=== PATIENT | female | born 1965 | race Two or more races ===

== ENCOUNTER 2023-12-23 09:21 | Inpatient (IN) | payer MEDICARE, OTHER ==
[~2023-12-23] VITALS: Ht 167.6 cm; Wt 101.4 kg
[2023-12-23] VITALS (10 sets, daily range): BP systolic 90–151; BP diastolic 47–81; PULSE 69–128; RESP 16–24; O2SAT 94–100
[2023-12-23] MEDS: MIDAZOLAM DRIP 50 mg/50mL 50 ML IV SCH (09:23)
[2023-12-23] MEDS ORDERED: MIDAZOLAM DRIP 50 mg/50mL 50 ML IV ONE (09:23)
[2023-12-23] MEDS ORDERED: NOREPINEPHRINE 8 MG/250ML KIT 250 ML IV ONE (09:24)
[2023-12-23] MEDS: NOREPINEPHRINE 8 MG/250ML KIT 250 ML IV SCH (09:24)
[2023-12-23] MEDS: DOPamine 1600MCG/ML D5W 250 ML IV ONE (09:25)
[2023-12-23 10:05] LABS: Basophils # (auto) 0.2 10 ^3/uL (0-0.2); Eosinophils # (auto) 0.3 10 ^3/uL (0-0.8); Hemoglobin 12.6 g/dL (12.2-16.2); Lymphocytes # (auto) 4.4 10 ^3/uL (0.4-5.4); Nucleated Red Blood Cells % 0.1 %; Red Cell Distribution Width 18.7 % (11.8-14.3)
[2023-12-23 10:07] LABS: Basophils % (auto) 0.9 % (0.0-2.0); Eosinophils % (auto) 1.3 % (0.0-7.0); Hematocrit 40.2 % (36.0-46.0); Lymphocytes % (auto) 19.2 % (10.0-50.0); Mean Corpuscular Hemoglobin 27.6 pg (28.0-32.0); Mean Corpuscular Hgb Conc. 31.3 g/dL (32.0-36.0); Mean Corpuscular Volume 88.4 fL (80.0-100.0); Monocytes # (auto) 1.4 10 ^3/uL (0-1.3); Monocytes % (auto) 6.1 % (0.0-12.0); Neutrophils # (auto) 16.4 10 ^3/uL (1.6-8.6); Neutrophils % (auto) 72.5 % (37.0-80.0); Red Blood Cells 4.54 10^6/uL (4.0-5.20); White Blood Cell 22.7 10^3/uL (4.4-10.8)
[2023-12-23 10:25] LABS: Alanine Aminotransferase 313 U/L (7-40); Alkaline Phosphatase 144 U/L (46-116); Anion Gap 14 (5-15); Aspartate Aminotransferase 769 U/L (13-40); BUN/Creatinine Ratio 9.5 (10.0-20.0); Bilirubin, Total 0.4 mg/dL (0.2-1.0); Blood Urea Nitrogen 8 mg/dL (9-23); Calcium 8.4 mg/dL (8.7-10.4); Carbon Dioxide 20 mmol/L (20-30); Chloride 106 mmol/L (98-107); Glucose 192 mg/dL (74-106); Magnesium 1.9 mg/dL (1.6-2.6); Potassium 3.3 mmol/L (3.5-5.1); Sodium 140 mmol/L (136-145); Total Protein 6.7 g/dL (5.7-8.2)
[2023-12-23 10:31] LABS: Lactic Acid w/Reflex 5.9 mmol/L (0.4-2.0)
[2023-12-23 10:32] LABS: Urine Bacteria FEW /hpf (None Seen); Urine Blood 1+ /uL (Negative); Urine Color Light-Yellow (Yellow); Urine Protein, UAD 2+ (Negative); Urine Specific Gravity 1.008 (1.001-1.035); Urine Urobilinogen Normal (Negative); Urine WBC 3 /hpf (0 - 5)
[2023-12-23 10:34] LABS: Amphetamine Screen, Urine Neg (NEGATIVE); Barbiturate Scree,Urine Neg (NEGATIVE); Benzodiazephine Screen, Urine Neg (NEGATIVE); Cannabinoid Screen, Urine Neg (NEGATIVE); Cocaine Screen, Urine Neg (NEGATIVE); Opiate Scree,Urine Neg (NEGATIVE); Phencyclidine Screen, Urine Neg (NEGATIVE); Urine Clarity CLOUDY (Clear)
[2023-12-23 10:35] LABS: INR 1.09 (0.9-1.15); Prothrombin Time 11.4 sec (9.3-11.8)
[2023-12-23] MEDS: SODIUM CHLORIDE 0.9% 1,000 ML IV ONE ×3 (10:41→14:52)
[2023-12-23] MEDS: cefTRIAXone 1GM/50ML D5W 50 ML IV ONE (11:16)
[2023-12-23] MEDS: PROPOFOL 100 ML IV SCH (11:25)
[2023-12-23] MEDS: AZITHROMYCIN 500MG/ 250ML 250 ML IV ONE (11:35)
[2023-12-23 11:50] LABS: Base Excess -8.3 mmol/L (-2.0-2.0)
[2023-12-23] MEDS ORDERED: NITROGLYCERIN 0.4 MG SL TAB SL PRN (14:45)
[2023-12-23] MEDS ORDERED: VANCOMYCIN PER PHARMACY 0 MG IV SCH (14:45)
[2023-12-23] MEDS ORDERED: ACETAMINOPHEN 325 MG TAB PO PRN (14:45)
[2023-12-23] MEDS ORDERED: MORPHINE SULFATE INJ 2 MG/ml SYRG IV PRN (14:45)
[2023-12-23 15:23] LABS: LDL Cholesterol 101 mg/dL (< 100); Triglycerides 214 mg/dL (< 150)
[2023-12-23 15:25] LABS: Cholesterol 167 mg/dL (< 200); HDL Cholesterol 54 mg/dL (40-59)
[2023-12-23] MEDS: PANTOPRAZOLE 40 MG/10 ML VIAL INJ IV ONE (16:18)
[2023-12-23] MEDS: SODIUM BICARB 8.4% 50Meq/50ml SYR Vial IV ONE (16:18)
[2023-12-23] MEDS: VANCOMYCIN 1GM/200ML 200 ML IV ONE (16:18)
[2023-12-23] MEDS: ENOXAPARIN SOD 120 MG/0.8 ML SYRINGE SC ONE (16:19)
[2023-12-23 16:30] LABS: Base Excess -5.3 mmol/L (-2.0-2.0)
[2023-12-23] MEDS: MAGNESIUM SULFATE 1GM/100ML 100 ML IV SCH (17:08)
[2023-12-23] MEDS ORDERED: METH-1286 PO (17:32)
[2023-12-23] MEDS ORDERED: LISI-275 PO (17:32)
[2023-12-23] MEDS ORDERED: FURO1TAB33 PO (17:32)
[2023-12-23] MEDS ORDERED: CARV-217 PO (17:32)
[2023-12-23] MEDS ORDERED: SPIR25TA8 PO (17:32)
[2023-12-23] MEDS ORDERED: MIRA25TA PO (17:32)
[2023-12-23] MEDS ORDERED: FAMO-12 PO (17:32)
[2023-12-23] MEDS: CEFEPIME 1GM/ 50ML 50 ML IV ONE (17:35)
[2023-12-23] MEDS: FOLIC ACID 1 MG, MAGNESIUM SULF SDV 50% 8 MEQ, MULTIPLE VITAMIN 10 ML, THIAMINE INJ 100... INJ SCH (18:08)
[2023-12-23] MEDS: POTASSIUM CHL 20MEQ/100ML 100 ML IV ONE (18:14)
[2023-12-23 18:45] LABS: Lactic Acid w/Reflex 4.2 mmol/L (0.4-2.0)
[2023-12-23] MEDS: IBUPROFEN 100MG/5ML ORAL SUSP 100 MG/5 ML UD GT PRN (20:42)
[2023-12-23] MEDS: CEFEPIME 1GM/ 50ML 50 ML IV SCH (23:00)
[2023-12-24] VITALS (13 sets, daily range): BP systolic 91–126; BP diastolic 54–74; PULSE 72–79; RESP 16–24; O2SAT 94–98
[2023-12-24 00:58] LABS: Lactic Acid w/Reflex 3.2 mmol/L (0.4-2.0)
[2023-12-24] MEDS: VANCOMYCIN 1GM/200ML 200 ML IV SCH (03:00)
[2023-12-24 07:03] LABS: Basophils # (auto) 0 10 ^3/uL (0-0.2); Basophils % (auto) 0.4 % (0.0-2.0); Eosinophils # (auto) 0 10 ^3/uL (0-0.8); Eosinophils % (auto) 0.3 % (0.0-7.0); Hematocrit 28.9 % (36.0-46.0); Hemoglobin 9.4 g/dL (12.2-16.2); Lymphocytes # (auto) 0.9 10 ^3/uL (0.4-5.4); Lymphocytes % (auto) 11.9 % (10.0-50.0); Mean Corpuscular Hemoglobin 28.6 pg (28.0-32.0); Mean Corpuscular Hgb Conc. 32.7 g/dL (32.0-36.0); Mean Corpuscular Volume 87.7 fL (80.0-100.0); Monocytes # (auto) 0.8 10 ^3/uL (0-1.3); Monocytes % (auto) 9.5 % (0.0-12.0); Neutrophils # (auto) 6.2 10 ^3/uL (1.6-8.6); Neutrophils % (auto) 77.9 % (37.0-80.0); Nucleated Red Blood Cells % 0.1 %; Red Cell Distribution Width 18.7 % (11.8-14.3); White Blood Cell 7.9 10^3/uL (4.4-10.8)
[2023-12-24 07:19] LABS: Alanine Aminotransferase 214 U/L (7-40); Albumin 3.1 g/dL (3.2-4.8); Alkaline Phosphatase 84 U/L (46-116); Anion Gap 9 (5-15); Aspartate Aminotransferase 484 U/L (13-40); BUN/Creatinine Ratio 15.9 (10.0-20.0); Bilirubin, Total 0.8 mg/dL (0.2-1.0); Blood Urea Nitrogen 11 mg/dL (9-23); Calcium 7.6 mg/dL (8.5-10.1); Carbon Dioxide 22 mmol/L (20-30); Chloride 110 mmol/L (98-107); Glucose 91 mg/dL (74-106); Potassium 3.9 mmol/L (3.5-5.1); Sodium 141 mmol/L (136-145); Total Protein 4.9 g/dL (5.7-8.2)
[2023-12-24 07:39] LABS: Base Excess -1.6 mmol/L (-2.0-2.0)
[2023-12-24] MEDS: PANTOPRAZOLE 40 MG/10 ML VIAL INJ IV SCH (08:55)
[2023-12-24] MEDS: ENOXAPARIN SOD 120 MG/0.8 ML SYRINGE SC SCH (08:55)
[2023-12-24] MEDS: fentaNYL Drip 2500mCg/250mlNS 250 ML IV SCH (14:08)
[2023-12-24 14:27] LABS: COVID19 ANTIGEN SOFIA FIA NEGATIVE (NEGATIVE); Rapid Influenza A Negative (Negative); Rapid Influenza B Negative (Negative)
[2023-12-24] MEDS: ACETAMINOPHEN 325 MG TAB PO PRN (14:30)
[2023-12-24] MEDS: Jevity 1.2 Cal/Fiber 1 Liter GT SCH (16:16)
[2023-12-24] MEDS: AMIODARONE 450mg/250ml AE 250 ML IV SCH ×2 (16:54→21:15)
[2023-12-24] MEDS: FOLIC ACID 1 MG, MAGNESIUM SULF SDV 50% 8 MEQ, MULTIPLE VITAMIN 10 ML, THIAMINE INJ 100... INJ SCH (17:00)
[2023-12-24] MEDS: AMIODARONE HCL 200 MG TAB PO ONE (17:28)
[2023-12-24] MEDS: IOHEXOL 350 MG/ML 100ML IJ ONE ×2 (21:27)
[2023-12-24] MEDS: AMIODARONE HCL 200 MG TAB PO SCH (22:03)
[2023-12-25] VITALS (110 sets, daily range): BP systolic 77–149; BP diastolic 20–80; PULSE 56–89; RESP 16–21; TEMP 97.5–99.7; O2SAT 91–100
[2023-12-25] MEDS: AMIODARONE 450mg/250ml AE 250 ML IV ONE (00:33)
[2023-12-25 04:02] LABS: Basophils # (auto) 0 10 ^3/uL (0-0.2); Basophils % (auto) 0.5 % (0.0-2.0); Eosinophils # (auto) 0.1 10 ^3/uL (0-0.8); Eosinophils % (auto) 0.9 % (0.0-7.0); Hematocrit 29.1 % (36.0-46.0); Hemoglobin 9.5 g/dL (12.2-16.2); Lymphocytes % (auto) 9.8 % (10.0-50.0); Mean Corpuscular Hgb Conc. 32.8 g/dL (32.0-36.0); Mean Corpuscular Volume 88.3 fL (80.0-100.0); Monocytes # (auto) 0.9 10 ^3/uL (0-1.3); Monocytes % (auto) 8.6 % (0.0-12.0); Neutrophils # (auto) 8.3 10 ^3/uL (1.6-8.6); Neutrophils % (auto) 80.2 % (37.0-80.0); Nucleated Red Blood Cells % 0.1 %; Red Blood Cells 3.29 10^6/uL (4.0-5.20); Red Cell Distribution Width 18.9 % (11.8-14.3); White Blood Cell 10.3 10^3/uL (4.4-10.8)
[2023-12-25 04:11] LABS: Alanine Aminotransferase 161 U/L (7-40); Albumin 3.4 g/dL (3.2-4.8); Alkaline Phosphatase 91 U/L (46-116); Anion Gap 4 (5-15); Aspartate Aminotransferase 173 U/L (13-40); BUN/Creatinine Ratio 14.3 (10.0-20.0); Bilirubin, Total 0.6 mg/dL (0.2-1.0); Blood Urea Nitrogen 10 mg/dL (9-23); Calcium 8.2 mg/dL (8.7-10.4); Carbon Dioxide 25 mmol/L (20-30); Chloride 109 mmol/L (98-107); Glucose 119 mg/dL (74-106); Magnesium 2.5 mg/dL (1.6-2.6); Potassium 4.2 mmol/L (3.5-5.1); Sodium 138 mmol/L (136-145); Total Protein 5.6 g/dL (5.7-8.2)
[2023-12-25 11:15] LABS: Folate (Folic Acid) 16.58 ng/mL (>5.38)
[2023-12-26] VITALS (107 sets, daily range): BP systolic 85–143; BP diastolic 35–82; PULSE 52–97; RESP 12–20; TEMP 97.3–101.1; O2SAT 91–100
[2023-12-26 04:00] LABS: Basophils # (auto) 0 10 ^3/uL (0-0.2); Basophils % (auto) 0.4 % (0.0-2.0); Eosinophils # (auto) 0.4 10 ^3/uL (0-0.8); Eosinophils % (auto) 4.3 % (0.0-7.0); Hematocrit 27.8 % (36.0-46.0); Hemoglobin 8.9 g/dL (12.2-16.2); Lymphocytes # (auto) 0.8 10 ^3/uL (0.4-5.4); Lymphocytes % (auto) 9.7 % (10.0-50.0); Mean Corpuscular Hemoglobin 28.3 pg (28.0-32.0); Mean Corpuscular Hgb Conc. 31.9 g/dL (32.0-36.0); Mean Corpuscular Volume 88.7 fL (80.0-100.0); Monocytes # (auto) 0.9 10 ^3/uL (0-1.3); Monocytes % (auto) 10.3 % (0.0-12.0); Neutrophils # (auto) 6.3 10 ^3/uL (1.6-8.6); Neutrophils % (auto) 75.3 % (37.0-80.0); Red Blood Cells 3.13 10^6/uL (4.0-5.20); Red Cell Distribution Width 18.4 % (11.8-14.3); White Blood Cell 8.4 10^3/uL (4.4-10.8)
[2023-12-26 04:43] LABS: Alanine Aminotransferase 119 U/L (7-40); Albumin 3.1 g/dL (3.2-4.8); Alkaline Phosphatase 124 U/L (46-116); Anion Gap 4 (5-15); Aspartate Aminotransferase 90 U/L (13-40); Blood Urea Nitrogen 6 mg/dL (9-23); Calcium 8.4 mg/dL (8.7-10.4); Carbon Dioxide 26 mmol/L (20-30); Chloride 109 mmol/L (98-107); Glucose 132 mg/dL (74-106); Magnesium 2.2 mg/dL (1.6-2.6); Potassium 3.9 mmol/L (3.5-5.1); Sodium 139 mmol/L (136-145)
[2023-12-26 04:44] LABS: Bilirubin, Total 1.2 mg/dL (0.2-1.0); Total Protein 5.3 g/dL (5.7-8.2)
[2023-12-26 07:18] LABS: Base Excess -2.6 mmol/L (-2.0-2.0)
[2023-12-26] MEDS ORDERED: METOCLOPRAMIDE 10 mg/10ml ORAL soln GT PRN (09:00)
[2023-12-26] MEDS: METOCLOPRAMIDE HCL 5MG/ml INJ 2ml VIAL IV ONE (09:22)
[2023-12-26] MEDS: ENOXAPARIN SOD 40 MG/0.4 ML SYRINGE SC SCH (09:24)
[2023-12-26] MEDS: cefTRIAXone 2GM/50ML D5W 50 ML IV SCH (10:02)
[2023-12-26 10:23] LABS: Urine Bacteria None Seen /hpf (None Seen)
[2023-12-26 10:57] LABS: Urine Blood 1+ /uL (Negative); Urine Budding Yeast OCCASIONAL /hpf (None Seen); Urine Clarity Clear (Clear); Urine Color Yellow (Yellow); Urine Protein, UAD 1+ (Negative); Urine Specific Gravity 1.027 (1.001-1.035); Urine Urobilinogen Normal (Negative); Urine WBC 8 /hpf (0 - 5)
[2023-12-26] MEDS: CATHFLO ACTIVASE (ALTEPLASE) 2 MG VIAL IV ONE (13:09)
[2023-12-27] VITALS (95 sets, daily range): BP systolic 100–171; BP diastolic 43–101; PULSE 61–119; RESP 14–35; TEMP 98.4–101.1; O2SAT 92–100
[2023-12-27 04:06] LABS: Basophils # (auto) 0 10 ^3/uL (0-0.2); Basophils % (auto) 0.3 % (0.0-2.0); Eosinophils # (auto) 0.3 10 ^3/uL (0-0.8); Eosinophils % (auto) 2.8 % (0.0-7.0); Hematocrit 28.4 % (36.0-46.0); Lymphocytes # (auto) 0.7 10 ^3/uL (0.4-5.4); Lymphocytes % (auto) 7.3 % (10.0-50.0); Mean Corpuscular Hgb Conc. 31.8 g/dL (32.0-36.0); Mean Corpuscular Volume 88.2 fL (80.0-100.0); Monocytes % (auto) 10.9 % (0.0-12.0); Neutrophils # (auto) 7.1 10 ^3/uL (1.6-8.6); Neutrophils % (auto) 78.7 % (37.0-80.0); Red Blood Cells 3.22 10^6/uL (4.0-5.20); Red Cell Distribution Width 19.3 % (11.8-14.3)
[2023-12-27 04:34] LABS: Anion Gap 4 (5-15); Carbon Dioxide 27 mmol/L (20-30); Chloride 108 mmol/L (98-107); Sodium 139 mmol/L (136-145)
[2023-12-27 04:35] LABS: Calcium 8.8 mg/dL (8.7-10.4)
[2023-12-27 04:40] LABS: Blood Urea Nitrogen 6 mg/dL (9-23); Glucose 96 mg/dL (74-106)
[2023-12-27] MEDS: MIDAZOLAM DRIP 50 mg/50mL 50 ML IV SCH (05:28)
[2023-12-27 08:00] LABS: Base Excess -0.6 mmol/L (-2.0-2.0)
[2023-12-27 08:19] LABS: Albumin 3.2 g/dL (3.2-4.8)
[2023-12-27 08:20] LABS: Bilirubin, Direct 0.5 mg/dL (<0.3); Bilirubin, Total 0.8 mg/dL (0.2-1.0); Total Protein 5.5 g/dL (5.7-8.2)
[2023-12-28] VITALS (104 sets, daily range): BP systolic 100–177; BP diastolic 53–114; PULSE 6–127; RESP 10–33; TEMP 98.6–99.4; O2SAT 92–100
[2023-12-28 04:08] LABS: Basophils # (auto) 0 10 ^3/uL (0-0.2); Basophils % (auto) 0.4 % (0.0-2.0); Eosinophils # (auto) 0.2 10 ^3/uL (0-0.8); Eosinophils % (auto) 2.4 % (0.0-7.0); Hemoglobin 9.1 g/dL (12.2-16.2); Lymphocytes # (auto) 0.7 10 ^3/uL (0.4-5.4); Mean Corpuscular Hemoglobin 29.5 pg (28.0-32.0); Mean Corpuscular Hgb Conc. 33.6 g/dL (32.0-36.0); Mean Corpuscular Volume 87.8 fL (80.0-100.0); Monocytes # (auto) 1.3 10 ^3/uL (0-1.3); Monocytes % (auto) 14.1 % (0.0-12.0); Neutrophils # (auto) 6.7 10 ^3/uL (1.6-8.6); Neutrophils % (auto) 75.1 % (37.0-80.0); Nucleated Red Blood Cells % 0.1 %; Red Blood Cells 3.08 10^6/uL (4.0-5.20); Red Cell Distribution Width 19.1 % (11.8-14.3); White Blood Cell 8.9 10^3/uL (4.4-10.8)
[2023-12-28 04:15] LABS: Alanine Aminotransferase 62 U/L (7-40); Albumin 3.2 g/dL (3.2-4.8); Alkaline Phosphatase 104 U/L (46-116); Anion Gap 4 (5-15); Aspartate Aminotransferase 37 U/L (13-40); BUN/Creatinine Ratio 11.6 (10.0-20.0); Bilirubin, Total 0.6 mg/dL (0.2-1.0); Blood Urea Nitrogen 5 mg/dL (9-23); Calcium 8.7 mg/dL (8.7-10.4); Carbon Dioxide 29 mmol/L (20-30); Chloride 106 mmol/L (98-107); Glucose 105 mg/dL (74-106); Magnesium 1.8 mg/dL (1.6-2.6); Potassium 3.9 mmol/L (3.5-5.1); Sodium 139 mmol/L (136-145); Total Protein 5.4 g/dL (5.7-8.2)
[2023-12-28 07:44] LABS: Base Excess 1.8 mmol/L (-2.0-2.0)
[2023-12-28] MEDS: hydrALAZINE HCL 20 MG/ML VL IV PRN (12:16)
[2023-12-28] MEDS: METOPROLOL TARTRATE 25 MG TAB PO SCH (21:34)
[2023-12-29] VITALS (84 sets, daily range): BP systolic 107–169; BP diastolic 54–99; PULSE 70–105; RESP 8–37; TEMP 98–99.4; O2SAT 90–100
[2023-12-29 04:42] LABS: Alanine Aminotransferase 46 U/L (7-40); Alkaline Phosphatase 87 U/L (46-116); Anion Gap 8 (5-15); BUN/Creatinine Ratio 14.3 (10.0-20.0); Blood Urea Nitrogen 6 mg/dL (9-23); Calcium 8.7 mg/dL (8.7-10.4); Carbon Dioxide 28 mmol/L (20-30); Chloride 105 mmol/L (98-107); Glucose 95 mg/dL (74-106); Potassium 3.3 mmol/L (3.5-5.1); Sodium 141 mmol/L (136-145)
[2023-12-29 04:43] LABS: Magnesium 1.8 mg/dL (1.6-2.6)
[2023-12-29 04:44] LABS: Albumin 3.2 g/dL (3.2-4.8); Aspartate Aminotransferase 29 U/L (13-40); Bilirubin, Total 0.6 mg/dL (0.2-1.0); Total Protein 5.3 g/dL (5.7-8.2)
[2023-12-29 04:56] LABS: Basophils # (auto) 0 10 ^3/uL (0-0.2); Basophils % (auto) 0.5 % (0.0-2.0); Eosinophils # (auto) 0.3 10 ^3/uL (0-0.8); Eosinophils % (auto) 3.9 % (0.0-7.0); Hematocrit 24.7 % (36.0-46.0); Hemoglobin 8.2 g/dL (12.2-16.2); Lymphocytes # (auto) 0.8 10 ^3/uL (0.4-5.4); Lymphocytes % (auto) 10.6 % (10.0-50.0); Mean Corpuscular Hgb Conc. 33.3 g/dL (32.0-36.0); Mean Corpuscular Volume 87.2 fL (80.0-100.0); Monocytes # (auto) 1.2 10 ^3/uL (0-1.3); Monocytes % (auto) 16.7 % (0.0-12.0); Neutrophils # (auto) 4.9 10 ^3/uL (1.6-8.6); Neutrophils % (auto) 68.3 % (37.0-80.0); Red Blood Cells 2.83 10^6/uL (4.0-5.20); Red Cell Distribution Width 19.3 % (11.8-14.3); White Blood Cell 7.1 10^3/uL (4.4-10.8)
[2023-12-29] MEDS: POTASSIUM CHL 20MEQ/100ML 100 ML IV ONE (06:11)
[2023-12-29 07:18] LABS: Base Excess 3.3 mmol/L (-2.0-2.0)
[2023-12-29] MEDS: MAGNESIUM SULFATE 1GM/100ML 100 ML IV ONE (08:09)
[2023-12-29] MEDS: DexmedeTOMIDine 200 MCG in D5W 5% 48 ML IV SCH (09:15)
[2023-12-29] MEDS: FUROSEMIDE 20 MG/2 ML VIAL IV ONE (11:29)
[2023-12-29 12:00] LABS: Base Excess 3.4 mmol/L (-2.0-2.0)
[2023-12-29] MEDS: IPRATROPIUM BROM 0.5 MG/2.5ML INH SOL NEB PRN (13:04)
[2023-12-29] MEDS: ALBUTEROL SULF 2.5 MG/0.5ML(0.5%) NEB SOLN NEB PRN (13:04)
[2023-12-29] MEDS: ONDANSETRON HCL 4 MG/2 ML VIAL IV PRN (14:06)
[2023-12-29] MEDS: MORPHINE SULFATE INJ 2 MG/ml SYRG IV PRN (14:08)
[2023-12-29] MEDS: POTASSIUM CHL 20MEQ/100ML 100 ML IV SCH (15:27)
[2023-12-29] MEDS: HYDROmorphone HCL 2 MG/ML VL/or syr IV PRN (17:27)
[2023-12-29] MEDS: LORazepam 2MG/ML-1ML VIAL IV PRN (20:51)
[2023-12-29] MEDS: METOPROLOL TARTRATE 25 MG TAB PO SCH (21:41)
[2023-12-30] VITALS (37 sets, daily range): BP systolic 117–168; BP diastolic 64–98; PULSE 61–105; RESP 8–24; TEMP 98.1–98.8; O2SAT 90–99
[2023-12-30 03:50] LABS: Basophils # (auto) 0 10 ^3/uL (0-0.2); Basophils % (auto) 0.5 % (0.0-2.0); Eosinophils # (auto) 0.2 10 ^3/uL (0-0.8); Eosinophils % (auto) 2.8 % (0.0-7.0); Hematocrit 27.9 % (36.0-46.0); Lymphocytes # (auto) 0.9 10 ^3/uL (0.4-5.4); Lymphocytes % (auto) 10.8 % (10.0-50.0); Mean Corpuscular Hemoglobin 28.3 pg (28.0-32.0); Mean Corpuscular Hgb Conc. 32.4 g/dL (32.0-36.0); Mean Corpuscular Volume 87.6 fL (80.0-100.0); Monocytes # (auto) 1.3 10 ^3/uL (0-1.3); Monocytes % (auto) 16.2 % (0.0-12.0); Neutrophils # (auto) 5.7 10 ^3/uL (1.6-8.6); Neutrophils % (auto) 69.7 % (37.0-80.0); Nucleated Red Blood Cells % 0.1 %; Red Blood Cells 3.18 10^6/uL (4.0-5.20); Red Cell Distribution Width 19.3 % (11.8-14.3); White Blood Cell 8.2 10^3/uL (4.4-10.8)
[2023-12-30 04:03] LABS: Anion Gap 8 (5-15); Carbon Dioxide 28 mmol/L (20-30); Chloride 104 mmol/L (98-107); Potassium 3.8 mmol/L (3.5-5.1); Sodium 140 mmol/L (136-145)
[2023-12-30 04:04] LABS: Calcium 9.2 mg/dL (8.7-10.4)
[2023-12-30 04:08] LABS: Glucose 89 mg/dL (74-106)
[2023-12-30 04:09] LABS: BUN/Creatinine Ratio 17.1 (10.0-20.0); Blood Urea Nitrogen 7 mg/dL (9-23)
[2023-12-30 04:33] LABS: Base Excess 1.9 mmol/L (-2.0-2.0)
[2023-12-30] MEDS: FUROSEMIDE 20 MG/2 ML VIAL IV SCH (08:45)
[2023-12-30] MEDS: FUROSEMIDE 20 MG/2 ML VIAL IV ONE (11:06)
[2023-12-30] MEDS: HYDROcodone-ACET 7.5/325MG TAB PO PRN (12:05)
[2023-12-30] MEDS: IPRATROPIUM BROM 0.5 MG/2.5ML INH SOL NEB SCH (14:00)
[2023-12-30] MEDS: ALBUTEROL SULF 2.5 MG/0.5ML(0.5%) NEB SOLN NEB SCH (14:19)
[2023-12-30] MEDS: traMADol HCL 50 MG TAB PO PRN (14:57)
[2023-12-30] MEDS: ARTIFICIAL TEARS 15ml EACHEYE PRN (17:58)
[2023-12-31] VITALS (16 sets, daily range): BP systolic 113–160; BP diastolic 53–99; PULSE 76–99; RESP 16–22; TEMP 97.9–99.1; O2SAT 93–100
[2023-12-31 06:05] LABS: Calcium 9.6 mg/dL (8.7-10.4); Chloride 101 mmol/L (98-107); Potassium 3.6 mmol/L (3.5-5.1); Sodium 139 mmol/L (136-145)
[2023-12-31 06:06] LABS: Anion Gap 8 (5-15); Carbon Dioxide 30 mmol/L (20-30)
[2023-12-31 06:08] LABS: Basophils # (auto) 0 10 ^3/uL (0-0.2); Basophils % (auto) 0.5 % (0.0-2.0); Eosinophils # (auto) 0.3 10 ^3/uL (0-0.8); Eosinophils % (auto) 4.8 % (0.0-7.0); Hemoglobin 9.4 g/dL (12.2-16.2); Lymphocytes # (auto) 0.9 10 ^3/uL (0.4-5.4); Lymphocytes % (auto) 13.5 % (10.0-50.0); Mean Corpuscular Hemoglobin 28.7 pg (28.0-32.0); Mean Corpuscular Hgb Conc. 32.6 g/dL (32.0-36.0); Mean Corpuscular Volume 88.2 fL (80.0-100.0); Monocytes # (auto) 1.1 10 ^3/uL (0-1.3); Monocytes % (auto) 15.6 % (0.0-12.0); Neutrophils # (auto) 4.4 10 ^3/uL (1.6-8.6); Neutrophils % (auto) 65.6 % (37.0-80.0); Red Blood Cells 3.29 10^6/uL (4.0-5.20); White Blood Cell 6.8 10^3/uL (4.4-10.8)
[2023-12-31 06:11] LABS: BUN/Creatinine Ratio 20.8 (10.0-20.0); Blood Urea Nitrogen 11 mg/dL (9-23); Glucose 89 mg/dL (74-106); Magnesium 1.9 mg/dL (1.6-2.6)
[2023-12-31 06:36] LABS: Red Cell Distribution Width 20.8 % (11.8-14.3)
[2023-12-31] MEDS: PANTOPRAZOLE 40 MG TAB PO SCH (10:00)
[2023-12-31] MEDS ORDERED: Jevity 1.2 Cal/Fiber 1 Liter GT SCH (14:45)
[2023-12-31] MEDS: MORPHINE SULFATE INJ 2 MG/ml SYRG IV PRN (16:16)
[2024-01-01] VITALS (23 sets, daily range): BP systolic 153–167; BP diastolic 86–101; PULSE 82–105; RESP 16–22; TEMP 98.1–99.5; O2SAT 90–99
[2024-01-01 04:10] LABS: Basophils # (auto) 0.1 10 ^3/uL (0-0.2); Basophils % (auto) 0.9 % (0.0-2.0); Eosinophils # (auto) 0.2 10 ^3/uL (0-0.8); Eosinophils % (auto) 2.8 % (0.0-7.0); Hematocrit 30.6 % (36.0-46.0); Lymphocytes # (auto) 0.9 10 ^3/uL (0.4-5.4); Mean Corpuscular Hemoglobin 28.7 pg (28.0-32.0); Mean Corpuscular Hgb Conc. 32.7 g/dL (32.0-36.0); Mean Corpuscular Volume 87.6 fL (80.0-100.0); Monocytes % (auto) 13.9 % (0.0-12.0); Neutrophils # (auto) 5.1 10 ^3/uL (1.6-8.6); Neutrophils % (auto) 70.4 % (37.0-80.0); Red Blood Cells 3.49 10^6/uL (4.0-5.20); Red Cell Distribution Width 20.4 % (11.8-14.3); White Blood Cell 7.2 10^3/uL (4.4-10.8)
[2024-01-01 04:33] LABS: Chloride 101 mmol/L (98-107); Potassium 3.5 mmol/L (3.5-5.1); Sodium 138 mmol/L (136-145)
[2024-01-01 04:34] LABS: Anion Gap 11 (5-15); Carbon Dioxide 26 mmol/L (20-30)
[2024-01-01 04:35] LABS: Calcium 9.3 mg/dL (8.7-10.4)
[2024-01-01 04:40] LABS: BUN/Creatinine Ratio 15.8 (10.0-20.0); Blood Urea Nitrogen 9 mg/dL (9-23); Glucose 81 mg/dL (74-106); Magnesium 1.8 mg/dL (1.6-2.6)
[2024-01-01] MEDS ORDERED: CLINIMIX PER PHARMACY 0 ML IV SCH (09:30)
[2024-01-01] MEDS: MAGNESIUM SULFATE 1GM/100ML 100 ML IV SCH (13:46)
[2024-01-01] MEDS: SODIUM CHL 0.9% IV ONE (13:47)
[2024-01-01] MEDS: LIDOCAINE 1% IV ONE (13:47)
[2024-01-01] MEDS: POTASSIUM CHL IV ONE (13:47)
[2024-01-01] MEDS ORDERED: DEXTROSE (50%) 50ML SYRG IV SCH (20:00)
[2024-01-01] MEDS: AMINO ACID INFUSION IN D5W 1,000 ML IV NR (20:16)
[2024-01-02] VITALS (19 sets, daily range): BP systolic 141–168; BP diastolic 86–110; PULSE 82–108; RESP 16–22; TEMP 97.3–98.5; O2SAT 90–100
[2024-01-02] MEDS: InsuLIN REG 1unit/0.01ml Soln (100units/ml) SC SCH
[2024-01-02] MEDS: ACCU-CHEK COMFORT CURVE STRIP VI SCH (00:16)
[2024-01-02 08:28] LABS: Hemoglobin 11.2 g/dL (12.2-16.2); Mean Corpuscular Hgb Conc. 32.4 g/dL (32.0-36.0); Monocytes # (auto) 0.7 10 ^3/uL (0-1.3)
[2024-01-02 08:30] LABS: Basophils # (auto) 0.1 10 ^3/uL (0-0.2); Basophils % (auto) 0.7 % (0.0-2.0); Eosinophils # (auto) 0.2 10 ^3/uL (0-0.8); Eosinophils % (auto) 2.1 % (0.0-7.0); Hematocrit 34.5 % (36.0-46.0); Lymphocytes # (auto) 0.8 10 ^3/uL (0.4-5.4); Lymphocytes % (auto) 10.1 % (10.0-50.0); Mean Corpuscular Hemoglobin 28.7 pg (28.0-32.0); Mean Corpuscular Volume 88.6 fL (80.0-100.0); Monocytes % (auto) 8.5 % (0.0-12.0); Neutrophils # (auto) 6.2 10 ^3/uL (1.6-8.6); Neutrophils % (auto) 78.6 % (37.0-80.0); Nucleated Red Blood Cells % 0.1 %; Red Blood Cells 3.89 10^6/uL (4.0-5.20); White Blood Cell 7.8 10^3/uL (4.4-10.8)
[2024-01-02 08:33] LABS: Red Cell Distribution Width 21.1 % (11.8-14.3)
[2024-01-02 08:47] LABS: Alanine Aminotransferase 24 U/L (7-40); Albumin 4.3 g/dL (3.2-4.8); Alkaline Phosphatase 128 U/L (46-116); Anion Gap 9 (5-15); Aspartate Aminotransferase 29 U/L (13-40); BUN/Creatinine Ratio 14.3 (10.0-20.0); Blood Urea Nitrogen 9 mg/dL (9-23); Calcium 9.4 mg/dL (8.5-10.1); Carbon Dioxide 25 mmol/L (20-30); Chloride 102 mmol/L (98-107); Glucose 135 mg/dL (74-106); Potassium 3.8 mmol/L (3.5-5.1); Sodium 136 mmol/L (136-145)
[2024-01-02 08:48] LABS: Bilirubin, Total 0.6 mg/dL (0.2-1.0); Phosphorus 2.8 mg/dL (2.4-5.1); Total Protein 7.4 g/dL (5.7-8.2)
[2024-01-02 09:26] LABS: Magnesium 2.1 mg/dL (1.6-2.6)
[2024-01-02] MEDS: POTASSIUM EFFERVESENT TAB 25 MEQ PO ONE (11:17)
[2024-01-02 15:33] LABS: Urine Amorphous Crystal FEW /hpf (None Seen); Urine Bacteria FEW /hpf (None Seen); Urine Blood Negative /uL (Negative); Urine Clarity Turbid (Clear); Urine Color Yellow (Yellow); Urine Mucus FEW (None Seen); Urine Protein, UAD 1+ (Negative); Urine Specific Gravity 1.023 (1.001-1.035); Urine Urobilinogen 4 mg/dL (Negative); Urine WBC 9 /hpf (0 - 5)
[2024-01-03] VITALS (22 sets, daily range): BP systolic 8–159; BP diastolic 62–99; PULSE 73–99; RESP 16–20; TEMP 97.8–98.6; O2SAT 92–100
[2024-01-03 06:31] LABS: Anion Gap 7 (5-15); Carbon Dioxide 25 mmol/L (20-30); Chloride 104 mmol/L (98-107); Potassium 3.7 mmol/L (3.5-5.1); Sodium 136 mmol/L (136-145)
[2024-01-03 06:37] LABS: Blood Urea Nitrogen 7 mg/dL (9-23); Glucose 93 mg/dL (74-106)
[2024-01-03 06:38] LABS: Magnesium 1.9 mg/dL (1.6-2.6)
[2024-01-03 06:57] LABS: Basophils # (auto) 0.1 10 ^3/uL (0-0.2); Basophils % (auto) 0.7 % (0.0-2.0); Eosinophils # (auto) 0.3 10 ^3/uL (0-0.8); Eosinophils % (auto) 3.4 % (0.0-7.0); Hematocrit 30.7 % (36.0-46.0); Hemoglobin 10.2 g/dL (12.2-16.2); Lymphocytes % (auto) 13.5 % (10.0-50.0); Mean Corpuscular Hemoglobin 29.2 pg (28.0-32.0); Mean Corpuscular Hgb Conc. 33.3 g/dL (32.0-36.0); Mean Corpuscular Volume 87.5 fL (80.0-100.0); Monocytes # (auto) 0.7 10 ^3/uL (0-1.3); Monocytes % (auto) 9.5 % (0.0-12.0); Neutrophils # (auto) 5.5 10 ^3/uL (1.6-8.6); Neutrophils % (auto) 72.9 % (37.0-80.0); Nucleated Red Blood Cells % 0.4 %; Red Blood Cells 3.51 10^6/uL (4.0-5.20); White Blood Cell 7.6 10^3/uL (4.4-10.8)
[2024-01-03 07:10] LABS: Red Cell Distribution Width 21.1 % (11.8-14.3)
[2024-01-03 12:15] LABS: Base Excess 2.3 mmol/L (-2.0-2.0)
[2024-01-04] VITALS (12 sets, daily range): BP systolic 118–147; BP diastolic 68–90; PULSE 70–92; RESP 16–18; TEMP 97.8–98.2; O2SAT 90–98
[2024-01-04 06:54] LABS: Basophils # (auto) 0.1 10 ^3/uL (0-0.2); Eosinophils # (auto) 0.4 10 ^3/uL (0-0.8); Hematocrit 31.6 % (36.0-46.0); Monocytes # (auto) 0.7 10 ^3/uL (0-1.3)
[2024-01-04 06:55] LABS: Eosinophils % (auto) 4.6 % (0.0-7.0); Lymphocytes % (auto) 11.7 % (10.0-50.0); Mean Corpuscular Hemoglobin 28.5 pg (28.0-32.0); Mean Corpuscular Hgb Conc. 31.8 g/dL (32.0-36.0); Mean Corpuscular Volume 89.7 fL (80.0-100.0); Monocytes % (auto) 8.4 % (0.0-12.0); Neutrophils % (auto) 74.3 % (37.0-80.0); Red Blood Cells 3.52 10^6/uL (4.0-5.20); White Blood Cell 8.1 10^3/uL (4.4-10.8)
[2024-01-04 07:01] LABS: Calcium 9.3 mg/dL (8.7-10.4); Chloride 102 mmol/L (98-107); Potassium 3.5 mmol/L (3.5-5.1); Sodium 136 mmol/L (136-145)
[2024-01-04 07:02] LABS: Carbon Dioxide 27 mmol/L (20-30)
[2024-01-04 07:07] LABS: BUN/Creatinine Ratio 9.4 (10.0-20.0); Blood Urea Nitrogen 6 mg/dL (9-23); Glucose 94 mg/dL (74-106)
[2024-01-04 07:08] LABS: Magnesium 1.8 mg/dL (1.6-2.6)
[2024-01-04 08:02] LABS: Anion Gap 7 (5-15)
[2024-01-04] MEDS: POTASSIUM EFFERVESENT TAB 25 MEQ PO ONE (09:21)
[2024-01-04] MEDS: MAGNESIUM OXIDE 400 MG TAB PO ONE (09:21)
[2024-01-04] MEDS ORDERED: AMIO200T33 PO ×2 (13:16→18:12)
[2024-01-04] MEDS ORDERED: [UNRECOGNIZED DRUG - CODE] PO (17:38)
[2024-01-04] MEDS ORDERED: ACET-1803 PO (18:12)
== END 2024-01-04 18:57 | disposition home health service (06) | DRG 870 ==
LOC: EDBD 09:21 → ER 09:21 → TELE 14:46 → ICU WEST 12-25 00:06 → TELE-WESTW 12-30 20:35
PROVIDERS: ADMIT Internal Medicine; ATTEND Emergency Medicine
PROC: 5A1955Z Respiratory Ventilation, Greater than 96 Consecutive Hours (ICD-10-PCS; principal; 2023-12-23)
PROC: 0BH17EZ Insertion of Endotracheal Airway into Trachea, Via Natural or Artificial Opening (ICD-10-PCS; 2023-12-23)
PROC: 5A12012 Performance of Cardiac Output, Single, Manual (ICD-10-PCS; 2023-12-23)
PROC: 0B9B8ZZ Drainage of Left Lower Lobe Bronchus, Via Natural or Artificial Opening Endoscopic (ICD-10-PCS; 2023-12-25)
PROC: 0B968ZZ Drainage of Right Lower Lobe Bronchus, Via Natural or Artificial Opening Endoscopic (ICD-10-PCS; 2023-12-25)
PROC: 05HB33Z Insertion of Infusion Device into Right Basilic Vein, Percutaneous Approach (ICD-10-PCS; 2024-01-01)
PROC: B54MZZA Ultrasonography of Right Upper Extremity Veins, Guidance (ICD-10-PCS; 2024-01-01)
DX: A41.50 Gram-negative sepsis, unspecified (principal); G93.41 Metabolic encephalopathy; I46.9 Cardiac arrest, cause unspecified; I21.A1 Myocardial infarction type 2; J96.01 Acute respiratory failure with hypoxia; I49.01 Ventricular fibrillation; J15.69 Pneumonia due to other Gram-negative bacteria; J15.9 Unspecified bacterial pneumonia; I50.43 Acute on chronic combined systolic (congestive) and diastolic (congestive) heart failure; G93.1 Anoxic brain damage, not elsewhere classified; N39.0 Urinary tract infection, site not specified; Z68.41 Body mass index [BMI] 40.0-44.9, adult; Z20.822 Contact with and (suspected) exposure to COVID-19; E87.6 Hypokalemia; F17.200 Nicotine dependence, unspecified, uncomplicated; R74.01 Elevation of levels of liver transaminase levels; G31.2 Degeneration of nervous system due to alcohol; Y90.6 Blood alcohol level of 120-199 mg/100 ml; I11.0 Hypertensive heart disease with heart failure; E66.01 Morbid (severe) obesity due to excess calories; F10.129 Alcohol abuse with intoxication, unspecified; Z79.899 Other long term (current) drug therapy; Z85.72 Personal history of non-Hodgkin lymphomas; Z92.21 Personal history of antineoplastic chemotherapy; Z92.3 Personal history of irradiation
CPT/HCPCS: 36415; 36556; 36600; 70450; 70551; 71045; 71275; 74176; 76705; 80048; 80053; 80061; 80076; 80202; 80307; 80320; 81001; 82140; 82270; 82607; 82746; 82805; 82962; 83605; 83735; 83880; 84100; 84443; 84484; 85025; 85379; 85610; 85730; 87040; 87070; 87077; 87081; 87086; 87186; 87205; 87426; 87804; 92610; 93005; 93306; 93970; 94002; 94003; 94640; 95819; 96361; 96365; 96368; 97110; 97116; 97163; 97530; 99291; C9113; G0378; J2001; J2250; J2405; J2704; J3480; J7060

== ENCOUNTER → 2024-01-19 | Outpatient (CLI) | payer MEDICARE ==
[~2024-01-19] MED LIST: ACET-1803 PO; AMIO200T33 PO; CARV-217 PO; FAMO-12 PO; FURO1TAB33 PO; LISI-275 PO; METH-1286 PO; MIRA25TA PO; SPIR25TA8 PO
[2024-01-19 10:57] LABS: Basophils # (auto) 0.1 10 ^3/uL (0-0.2); Eosinophils # (auto) 0.3 10 ^3/uL (0-0.8); Eosinophils % (auto) 4.7 % (0.0-7.0); Monocytes # (auto) 0.7 10 ^3/uL (0-1.3)
[2024-01-19 11:00] LABS: Basophils % (auto) 1.3 % (0.0-2.0); Hematocrit 36.5 % (36.0-46.0); Hemoglobin 11.8 g/dL (12.2-16.2); Lymphocytes # (auto) 1.4 10 ^3/uL (0.4-5.4); Lymphocytes % (auto) 21.7 % (10.0-50.0); Mean Corpuscular Hemoglobin 27.9 pg (28.0-32.0); Mean Corpuscular Hgb Conc. 32.4 g/dL (32.0-36.0); Mean Corpuscular Volume 86.2 fL (80.0-100.0); Monocytes % (auto) 10.4 % (0.0-12.0); Neutrophils % (auto) 61.9 % (37.0-80.0); Red Blood Cells 4.23 10^6/uL (4.0-5.20); White Blood Cell 6.4 10^3/uL (4.4-10.8)
[2024-01-19 11:04] LABS: Red Cell Distribution Width 20.2 % (11.8-14.3)
[2024-01-19 11:39] LABS: Free T4 (Free Thyroxine) 0.5 ng/dL (0.89-1.76)
[2024-01-20 08:06] LABS: AFP Serum Tumor Marker 4.4 ng/mL (0.0-9.2)
[2024-01-22 10:13] LABS: Albumin 3.4 g/dL (2.9-4.4); Alpha-1-Globulin 0.3 g/dL (0.0-0.4); Alpha-2-Globulin 0.8 g/dL (0.4-1.0); Gamma Globulin 1.2 g/dL (0.4-1.8); Globulin Total 3.6 g/dL (2.2-3.9)
== END | disposition home or self-care (01) ==
LOC: LAB 10:09
PROVIDERS: ATTEND Internal Medicine
DX: E78.5 Hyperlipidemia, unspecified (principal); M89.9 Disorder of bone, unspecified; E88.01 Alpha-1-antitrypsin deficiency; Z85.72 Personal history of non-Hodgkin lymphomas; Z79.899 Other long term (current) drug therapy
CPT/HCPCS: 36415; 82105; 82607; 83615; 84132; 84155; 84165; 84439; 85025

== ENCOUNTER → 2024-02-09 | Outpatient (CLI) | payer MEDICARE ==
[2024-02-09 08:35] LABS: Basophils # (auto) 0.1 10 ^3/uL (0-0.2); Basophils % (auto) 1.7 % (0.0-2.0); Eosinophils # (auto) 0.3 10 ^3/uL (0-0.8); Eosinophils % (auto) 6.7 % (0.0-7.0); Hematocrit 37.1 % (36.0-46.0); Hemoglobin 12.3 g/dL (12.2-16.2); Lymphocytes # (auto) 1.2 10 ^3/uL (0.4-5.4); Lymphocytes % (auto) 27.1 % (10.0-50.0); Mean Corpuscular Hemoglobin 28.3 pg (28.0-32.0); Mean Corpuscular Hgb Conc. 33.1 g/dL (32.0-36.0); Mean Corpuscular Volume 85.6 fL (80.0-100.0); Monocytes # (auto) 0.4 10 ^3/uL (0-1.3); Monocytes % (auto) 10.1 % (0.0-12.0); Neutrophils # (auto) 2.3 10 ^3/uL (1.6-8.6); Neutrophils % (auto) 54.4 % (37.0-80.0); Nucleated Red Blood Cells % 0.1 %; Red Blood Cells 4.34 10^6/uL (4.0-5.20); Red Cell Distribution Width 19.3 % (11.8-14.3); White Blood Cell 4.3 10^3/uL (4.4-10.8)
[2024-02-09 10:26] LABS: Erythrocyte Sedimentation Rate 13 mm/hr (0-20)
[2024-02-09 12:11] LABS: % Iron Saturation 12.6 % (15-50)
[2024-02-09 13:40] LABS: Folate (Folic Acid) 13.14 ng/mL (>5.38)
[2024-02-09 13:42] LABS: Ferritin 9.7 ng/mL (10-291)
[2024-02-09 15:19] LABS: Alanine Aminotransferase 13 U/L (7-40); Albumin 4.5 g/dL (3.2-4.8); Alkaline Phosphatase 131 U/L (46-116); Anion Gap 3 (5-15); Aspartate Aminotransferase 12 U/L (13-40); BUN/Creatinine Ratio 9.9 (10.0-20.0); Bilirubin, Total 0.5 mg/dL (0.2-1.0); Blood Urea Nitrogen 9 mg/dL (9-23); Carbon Dioxide 30 mmol/L (20-30); Chloride 103 mmol/L (98-107); Glucose 92 mg/dL (74-106); Potassium 4.5 mmol/L (3.5-5.1); Sodium 136 mmol/L (136-145); Total Protein 7.1 g/dL (5.7-8.2)
[2024-02-10 08:07] LABS: Immunoglobulin A 204 mg/dL (87-352); Immunoglobulin G, Serum 1185 mg/dL (586-1602); Immunoglobulin M 73 mg/dL (26-217)
== END | disposition home or self-care (01) ==
LOC: LAB 08:10
PROVIDERS: ATTEND Internal Medicine Hematology & Oncology
DX: I11.0 Hypertensive heart disease with heart failure (principal); I50.9 Heart failure, unspecified; M89.9 Disorder of bone, unspecified; Z85.72 Personal history of non-Hodgkin lymphomas; Z79.899 Other long term (current) drug therapy
CPT/HCPCS: 36415; 80053; 82607; 82728; 82746; 82784; 83540; 83550; 85025; 85045; 85652

== ENCOUNTER → 2024-02-14 | Outpatient (CLI) | payer MEDICARE ==
[2024-02-14 12:00] VITALS: BP 111/66; PULSE 70; RESP 16; O2SAT 92
[2024-02-14 12:20] VITALS: BP 118/58; PULSE 67; RESP 16; O2SAT 95
== END | disposition home or self-care (01) ==
LOC: Rad HDHVI 11:52
PROVIDERS: ATTEND Internal Medicine Cardiovascular Disease
DX: Z01.818 Encounter for other preprocedural examination (principal); I25.10 Atherosclerotic heart disease of native coronary artery without angina pectoris; R94.31 Abnormal electrocardiogram [ECG] [EKG]
CPT/HCPCS: 71046; 93005; G0463

== ENCOUNTER 2024-02-15 09:59 | Day surgery (SDC) | payer MEDICARE, MEDICAID ==
[2024-02-14 14:15] LABS: Basophils # (auto) 0.1 10 ^3/uL (0-0.2); Basophils % (auto) 1.1 % (0.0-2.0); Eosinophils # (auto) 0.2 10 ^3/uL (0-0.8); Hematocrit 36.8 % (36.0-46.0); Hemoglobin 12.1 g/dL (12.2-16.2); Lymphocytes # (auto) 1.2 10 ^3/uL (0.4-5.4); Lymphocytes % (auto) 22.9 % (10.0-50.0); Mean Corpuscular Hemoglobin 28.7 pg (28.0-32.0); Mean Corpuscular Hgb Conc. 32.8 g/dL (32.0-36.0); Mean Corpuscular Volume 87.5 fL (80.0-100.0); Monocytes # (auto) 0.5 10 ^3/uL (0-1.3); Neutrophils # (auto) 3.3 10 ^3/uL (1.6-8.6); Red Blood Cells 4.21 10^6/uL (4.0-5.20); Red Cell Distribution Width 19.6 % (11.8-14.3); White Blood Cell 5.2 10^3/uL (4.4-10.8)
[2024-02-14 14:34] LABS: Chloride 104 mmol/L (98-107); INR 1.03 (0.9-1.15); Prothrombin Time 10.9 sec (9.3-11.8); Sodium 139 mmol/L (136-145)
[2024-02-14 14:35] LABS: Anion Gap 4 (5-15); Carbon Dioxide 31 mmol/L (20-30)
[2024-02-14 14:40] LABS: BUN/Creatinine Ratio 7.8 (10.0-20.0); Blood Urea Nitrogen 8 mg/dL (9-23); Glucose 89 mg/dL (74-106)
[~2024-02-15] VITALS: Ht 165.1 cm; Wt 94.8 kg
[2024-02-15] VITALS (9 sets, daily range): BP systolic 123–155; BP diastolic 84–95; PULSE 62–72; RESP 18–22; O2SAT 92–100
[2024-02-15] MEDS ORDERED: ANGIOMAX 250 MG VIAL IV ONE (12:06)
[2024-02-15] MEDS ORDERED: IOHEXOL 350 MG/ML 100ML IJ ONE (12:07)
[2024-02-15] MEDS ORDERED: MIDAZOLAM HCL 2MG/2ML 2ml VIAL (1mg/ml) ONE (12:07)
[2024-02-15] MEDS ORDERED: SODIUM CHL 0.9% 0 ML ONE (12:07)
[2024-02-15] MEDS ORDERED: fentaNYL CITRATE 100 MCG/2 ML VL ONE (12:07)
[2024-02-15] MEDS ORDERED: LIDOCAINE 2%HCL (LOCAL ANESTH.) INJ 20ML MDV ONE (12:08)
== END 2024-02-15 15:00 | disposition home or self-care (01) ==
LOC: CATH 09:59
PROVIDERS: ATTEND Internal Medicine Cardiovascular Disease
DX: I25.10 Atherosclerotic heart disease of native coronary artery without angina pectoris (principal); I10 Essential (primary) hypertension; I42.0 Dilated cardiomyopathy; I47.29 Other ventricular tachycardia; I25.2 Old myocardial infarction; Z79.01 Long term (current) use of anticoagulants; Z79.899 Other long term (current) drug therapy; Z85.72 Personal history of non-Hodgkin lymphomas; Z98.890 Other specified postprocedural states; Z88.1 Allergy status to other antibiotic agents
CPT/HCPCS: 36415; 80048; 85025; 85610; 85730; 93460; C1760; C1894; J1644; J2250; J3010; J7030; Q9967; 99152

== ENCOUNTER → 2024-02-21 | Outpatient (CLI) | payer MEDICARE, MEDICAID ==
[~2024-02-21] MED LIST changes: -METH-1286 PO; -MIRA25TA PO
[2024-02-21 10:00] LABS: Basophils # (auto) 0.1 10 ^3/uL (0-0.2); Basophils % (auto) 0.8 % (0.0-2.0); Eosinophils # (auto) 0.2 10 ^3/uL (0-0.8); Eosinophils % (auto) 2.3 % (0.0-7.0); Hematocrit 37.3 % (36.0-46.0); Hemoglobin 12.2 g/dL (12.2-16.2); Lymphocytes # (auto) 1.2 10 ^3/uL (0.4-5.4); Lymphocytes % (auto) 13.8 % (10.0-50.0); Mean Corpuscular Hemoglobin 28.8 pg (28.0-32.0); Mean Corpuscular Hgb Conc. 32.8 g/dL (32.0-36.0); Mean Corpuscular Volume 87.7 fL (80.0-100.0); Monocytes % (auto) 10.9 % (0.0-12.0); Neutrophils # (auto) 6.5 10 ^3/uL (1.6-8.6); Neutrophils % (auto) 72.2 % (37.0-80.0); Red Blood Cells 4.25 10^6/uL (4.0-5.20); Red Cell Distribution Width 19.4 % (11.8-14.3)
[2024-02-21 10:37] LABS: Albumin 4.5 g/dL (3.2-4.8); Alkaline Phosphatase 128 U/L (46-116); Anion Gap 5 (5-15); Aspartate Aminotransferase < 8 U/L (13-40); Calcium 9.7 mg/dL (8.5-10.1); Carbon Dioxide 28 mmol/L (20-30); Chloride 105 mmol/L (98-107); Glucose 105 mg/dL (74-106); Sodium 138 mmol/L (136-145)
[2024-02-21 10:38] LABS: Bilirubin, Total 0.5 mg/dL (0.2-1.0); Total Protein 7.5 g/dL (5.7-8.2)
[2024-02-21 11:02] LABS: Alanine Aminotransferase < 9 U/L (7-40); BUN/Creatinine Ratio 6.2 (10.0-20.0); Blood Urea Nitrogen < 5 mg/dL (9-23)
[2024-02-26 23:07] LABS: Mycoplasma pneumoniae IgG Ab 431 U/mL (0-99); Mycoplasma pneumoniae IgM Ab 883 U/mL (0-769)
== END | disposition home or self-care (01) ==
LOC: LAB 09:32
PROVIDERS: ATTEND Internal Medicine
DX: J20.9 Acute bronchitis, unspecified (principal)
CPT/HCPCS: 36415; 80053; 85025; 86738

== ENCOUNTER → 2024-06-05 | Outpatient (CLI) | payer MEDICARE, MEDICAID | END | disposition home or self-care (01) | LOC: Rad HDHVI 08:03 | PROVIDERS: ATTEND Internal Medicine Cardiovascular Disease | DX: I10 Essential (primary) hypertension (principal) | CPT/HCPCS: 93306 ==

== ENCOUNTER → 2024-06-05 | Outpatient (CLI) | payer MEDICARE, MEDICAID ==
[2024-06-05 10:21] LABS: Basophils # (auto) 0 10 ^3/uL (0-0.2); Basophils % (auto) 1.2 % (0.0-2.0); Eosinophils # (auto) 0.1 10 ^3/uL (0-0.8); Eosinophils % (auto) 3.4 % (0.0-7.0); Hematocrit 38.3 % (36.0-46.0); Hemoglobin 12.8 g/dL (12.2-16.2); Lymphocytes % (auto) 28.6 % (10.0-50.0); Mean Corpuscular Hemoglobin 30.9 pg (28.0-32.0); Mean Corpuscular Hgb Conc. 33.6 g/dL (32.0-36.0); Monocytes # (auto) 0.3 10 ^3/uL (0-1.3); Monocytes % (auto) 8.5 % (0.0-12.0); Neutrophils # (auto) 2.1 10 ^3/uL (1.6-8.6); Neutrophils % (auto) 58.3 % (37.0-80.0); Nucleated Red Blood Cells % 0.1 %; Platelet Count (auto) 274 10^3/uL (140-450); Red Blood Cells 4.16 10^6/uL (4.0-5.20); Red Cell Distribution Width 19.4 % (11.8-14.3); White Blood Cell 3.7 10^3/uL (4.4-10.8)
[2024-06-05 10:24] LABS: INR 1.03 (0.9-1.15); Prothrombin Time 10.9 sec (9.3-11.8)
[2024-06-05 10:31] LABS: Alanine Aminotransferase 12 U/L (7-40); Albumin 4.7 g/dL (3.2-4.8); Alkaline Phosphatase 75 U/L (46-116); Anion Gap 7 (5-15); Aspartate Aminotransferase 17 U/L (13-40); BUN/Creatinine Ratio 11.8 (10.0-20.0); Blood Urea Nitrogen 11 mg/dL (9-23); Carbon Dioxide 26 mmol/L (20-31); Chloride 106 mmol/L (98-107); Glucose 98 mg/dL (74-106); Magnesium 2.3 mg/dL (1.6-2.6); Potassium 4.4 mmol/L (3.5-5.1); Sodium 139 mmol/L (136-145)
[2024-06-05 10:32] LABS: Bilirubin, Total 0.6 mg/dL (0.2-1.0); Total Protein 7.4 g/dL (5.7-8.2)
[2024-06-05 10:35] LABS: Carcinoembryonic Antigen 2.51 ng/mL (<=5.0)
[2024-06-05 10:37] LABS: Free T4 (Free Thyroxine) 0.58 ng/dL (0.89-1.76)
[2024-06-05 10:56] LABS: Large Platelets FEW; Platelet Estimate Adequa
[2024-06-06 09:07] LABS: AFP Serum Tumor Marker 4.2 ng/mL (0.0-9.2)
[2024-06-06 09:17] LABS: Hepatitis B Surface Antigen Negative (Negative)
[2024-06-06 09:38] LABS: Hepatitis C Antibody Negative (Negative)
== END | disposition home or self-care (01) ==
LOC: LAB 09:13
PROVIDERS: ATTEND Internal Medicine
DX: I42.0 Dilated cardiomyopathy (principal); R93.3 Abnormal findings on diagnostic imaging of other parts of digestive tract; R94.5 Abnormal results of liver function studies; Z85.71 Personal history of Hodgkin lymphoma; K76.89 Other specified diseases of liver; Z79.899 Other long term (current) drug therapy
CPT/HCPCS: 36415; 80053; 82105; 82378; 83735; 84439; 84443; 85025; 85610; 86301; 86803; 87340

== ENCOUNTER → 2024-08-12 | Outpatient (CLI) | payer MEDICARE, MEDICAID ==
[2024-08-12 08:12] LABS: Basophils # (auto) 0.1 10 ^3/uL (0-0.2); Basophils % (auto) 1.2 % (0.0-2.0); Eosinophils # (auto) 0.2 10 ^3/uL (0-0.8); Eosinophils % (auto) 3.5 % (0.0-7.0); Hemoglobin 12.5 g/dL (12.2-16.2); Lymphocytes # (auto) 1.1 10 ^3/uL (0.4-5.4); Lymphocytes % (auto) 23.1 % (10.0-50.0); Mean Corpuscular Hgb Conc. 32.8 g/dL (32.0-36.0); Mean Corpuscular Volume 94.5 fL (80.0-100.0); Monocytes # (auto) 0.5 10 ^3/uL (0-1.3); Monocytes % (auto) 11.6 % (0.0-12.0); Neutrophils # (auto) 2.8 10 ^3/uL (1.6-8.6); Neutrophils % (auto) 60.6 % (37.0-80.0); Nucleated Red Blood Cells % 0.1 %; Platelet Count (auto) 299 10^3/uL (140-450); Red Blood Cells 4.02 10^6/uL (4.0-5.20); Red Cell Distribution Width 15.5 % (11.8-14.3); White Blood Cell 4.6 10^3/uL (4.4-10.8)
== END | disposition home or self-care (01) ==
LOC: LAB 07:16
PROVIDERS: ATTEND Internal Medicine
DX: E03.9 Hypothyroidism, unspecified (principal); D72.819 Decreased white blood cell count, unspecified
CPT/HCPCS: 36415; 84439; 84443; 85025

== ENCOUNTER → 2024-11-22 | Outpatient (CLI) | payer MEDICARE, MEDICAID ==
[2024-11-22 06:57] LABS: Urine Bacteria None Seen /hpf (None Seen)
[2024-11-22 07:19] LABS: Basophils # (auto) 0 10 ^3/uL (0-0.2); Basophils % (auto) 1.1 % (0.0-2.0); Eosinophils # (auto) 0.2 10 ^3/uL (0-0.8); Eosinophils % (auto) 3.6 % (0.0-7.0); Hematocrit 34.6 % (36.0-46.0); Hemoglobin 11.6 g/dL (12.2-16.2); Lymphocytes # (auto) 0.9 10 ^3/uL (0.4-5.4); Lymphocytes % (auto) 22.1 % (10.0-50.0); Mean Corpuscular Hemoglobin 29.9 pg (28.0-32.0); Mean Corpuscular Hgb Conc. 33.5 g/dL (32.0-36.0); Mean Corpuscular Volume 89.4 fL (80.0-100.0); Monocytes # (auto) 0.5 10 ^3/uL (0-1.3); Monocytes % (auto) 12.3 % (0.0-12.0); Neutrophils # (auto) 2.6 10 ^3/uL (1.6-8.6); Neutrophils % (auto) 60.9 % (37.0-80.0); Platelet Count (auto) 334 10^3/uL (140-450); Red Blood Cells 3.87 10^6/uL (4.0-5.20); Red Cell Distribution Width 15.1 % (11.8-14.3); White Blood Cell 4.2 10^3/uL (4.4-10.8)
[2024-11-22 07:23] LABS: INR 0.98 (0.9-1.15); Prothrombin Time 10.4 sec (9.3-11.8)
[2024-11-22 07:25] LABS: Urine Amorphous Crystal FEW /hpf (None Seen); Urine Blood Negative /uL (Negative); Urine Clarity Turbid (Clear); Urine Color Light-Yellow (Yellow); Urine Protein, UAD Negative (Negative); Urine Specific Gravity 1.023 (1.001-1.035); Urine Squamous Epithelial Cell FEW /hpf (<5); Urine Urobilinogen Normal (Negative); Urine WBC 4 /HPF (0-5)
[2024-11-22 07:28] LABS: Alanine Aminotransferase 12 U/L (7-40); Albumin 4.7 g/dL (3.2-4.8); Alkaline Phosphatase 72 U/L (46-116); Anion Gap 5 (5-15); Aspartate Aminotransferase 16 U/L (13-40); BUN/Creatinine Ratio 15.2 (10.0-20.0); Blood Urea Nitrogen 15 mg/dL (9-23); Calcium 9.6 mg/dL (8.7-10.4); Carbon Dioxide 28 mmol/L (20-31); Chloride 105 mmol/L (98-107); Glucose 91 mg/dL (74-106); Potassium 4.5 mmol/L (3.5-5.1); Sodium 138 mmol/L (136-145); Total Protein 7.3 g/dL (5.7-8.2); Triglycerides 81 mg/dL (< 150)
[2024-11-22 07:29] LABS: Bilirubin, Total 0.7 mg/dL (0.2-1.0)
[2024-11-22 07:34] LABS: Cholesterol 227 mg/dL (< 200); HDL Cholesterol 91 mg/dL (40-59); LDL Cholesterol 132 mg/dL (< 100)
[2024-11-22 07:55] LABS: Erythrocyte Sedimentation Rate 11 mm/hr (0-20)
== END | disposition home or self-care (01) ==
LOC: LAB 06:30
PROVIDERS: ATTEND Internal Medicine
DX: I11.0 Hypertensive heart disease with heart failure (principal); I50.9 Heart failure, unspecified; K76.0 Fatty (change of) liver, not elsewhere classified; E03.9 Hypothyroidism, unspecified; Z79.899 Other long term (current) drug therapy
CPT/HCPCS: 36415; 80053; 80061; 81001; 83036; 84439; 84443; 85025; 85610; 85652

== ENCOUNTER → 2024-12-06 | Outpatient (CLI) | payer MEDICARE, MEDICAID ==
[2024-12-06 07:40] LABS: Basophils # (auto) 0.1 10 ^3/uL (0-0.2); Basophils % (auto) 3.5 % (0.0-2.0); Eosinophils # (auto) 0 10 ^3/uL (0-0.8); Eosinophils % (auto) 1.5 % (0.0-7.0); Hematocrit 36.4 % (36.0-46.0); Hemoglobin 12.2 g/dL (12.2-16.2); Lymphocytes % (auto) 31.5 % (10.0-50.0); Mean Corpuscular Hemoglobin 29.6 pg (28.0-32.0); Mean Corpuscular Hgb Conc. 33.6 g/dL (32.0-36.0); Mean Corpuscular Volume 88.1 fL (80.0-100.0); Monocytes # (auto) 0.5 10 ^3/uL (0-1.3); Monocytes % (auto) 16.7 % (0.0-12.0); Neutrophils # (auto) 1.5 10 ^3/uL (1.6-8.6); Neutrophils % (auto) 46.8 % (37.0-80.0); Platelet Count (auto) 294 10^3/uL (140-450); Red Blood Cells 4.13 10^6/uL (4.0-5.20); White Blood Cell 3.2 10^3/uL (4.4-10.8)
[2024-12-06 07:58] LABS: Alanine Aminotransferase 34 U/L (7-40); Albumin 4.5 g/dL (3.2-4.8); Alkaline Phosphatase 85 U/L (46-116); Anion Gap 8 (5-15); Aspartate Aminotransferase 24 U/L (13-40); BUN/Creatinine Ratio 11.9 (10.0-20.0); Bilirubin, Total 0.3 mg/dL (0.2-1.0); Blood Urea Nitrogen 10 mg/dL (9-23); Calcium 9.4 mg/dL (8.7-10.4); Carbon Dioxide 27 mmol/L (20-31); Chloride 103 mmol/L (98-107); Glucose 90 mg/dL (74-106); Potassium 3.8 mmol/L (3.5-5.1); Sodium 138 mmol/L (136-145)
== END | disposition home or self-care (01) ==
LOC: LAB 06:37
PROVIDERS: ATTEND Internal Medicine
DX: R19.7 Diarrhea, unspecified (principal)
CPT/HCPCS: 36415; 80053; 85025

== ENCOUNTER → 2024-12-27 | Outpatient (CLI) | payer MEDICARE, MEDICAID ==
[2024-12-27 07:49] LABS: Basophils # (auto) 0 10 ^3/uL (0-0.2); Eosinophils # (auto) 0.1 10 ^3/uL (0-0.8); Eosinophils % (auto) 3.4 % (0.0-7.0); Hematocrit 34.3 % (36.0-46.0); Hemoglobin 11.6 g/dL (12.2-16.2); Lymphocytes # (auto) 0.7 10 ^3/uL (0.4-5.4); Lymphocytes % (auto) 23.2 % (10.0-50.0); Mean Corpuscular Hemoglobin 29.1 pg (28.0-32.0); Mean Corpuscular Hgb Conc. 33.7 g/dL (32.0-36.0); Mean Corpuscular Volume 86.5 fL (80.0-100.0); Monocytes # (auto) 0.5 10 ^3/uL (0-1.3); Monocytes % (auto) 16.3 % (0.0-12.0); Neutrophils # (auto) 1.7 10 ^3/uL (1.6-8.6); Neutrophils % (auto) 56.1 % (37.0-80.0); Nucleated Red Blood Cells % 0.1 %; Platelet Count (auto) 277 10^3/uL (140-450); Red Blood Cells 3.97 10^6/uL (4.0-5.20); Red Cell Distribution Width 16.6 % (11.8-14.3); White Blood Cell 3.1 10^3/uL (4.4-10.8)
== END | disposition home or self-care (01) ==
LOC: LAB 06:36
PROVIDERS: ATTEND Internal Medicine
DX: R19.7 Diarrhea, unspecified (principal); E78.5 Hyperlipidemia, unspecified
CPT/HCPCS: 36415; 84132; 84439; 85025; 87045; 87177; 87427; 87493

== ENCOUNTER 2025-01-24 16:48 | Emergency (ER) | payer MEDICARE, MEDICAID | END 2025-01-24 17:49 | disposition left against medical advice (07) | LOC: ER 16:48 | DX: R33.9 Retention of urine, unspecified (principal); Z53.21 Procedure and treatment not carried out due to patient leaving prior to being seen by health care provider ==

== ENCOUNTER 2025-02-16 05:13 | Inpatient (IN) | payer MEDICARE, MEDICAID ==
[~2025-02-16] VITALS: Ht 167.6 cm; Wt 93.5 kg
--- NOTE | 2025-02-16 06:29 | ED.PDOC ---
History of Present Illness HPI Comments 59 y/o F, with PMHx of lymphoma and [place] presents to the ED for CC of ETOH withdrawal. Patient states, she has been experiencing ETOH withdrawals with associated tremors following, binge drinking x1week. Patient reports, last drink to have been at 1100 yesterday (02/15/25). Patient denies auditory or visual hallucinations. No other symptoms or modifying factors present at this time. Chief Complaint: Withdrawal Time Seen by MD: 06:15 Primary Care Provider: UNKNOWN Reviewed Notes: Nurses Notes, Medications, Allergies Allergies: Coded Allergies: Sulfamethoxazole w/Trimethoprim (Verified Allergy, Unknown, DIZZY, 02/14/24) Home Meds Active Scripts Acetaminophen (Acetaminophen ER 8 Hour) 650 Mg Tab, 650 MG PO Q8HPRN PRN for 14 Days, #42 TAB Prov:VLADIMIR NG RESIDENT 01/04/24 Amiodarone Hcl (Amiodarone Hcl) 200 Mg Tab, 1 TAB PO DAILY, #30 TAB 5 Refills Prov:VLADIMIR NG RESIDENT 01/04/24 Reported Medications Famotidine (Famotidine) 20 Mg Tab, 20 MG PO BID, MG 12/23/23 Carvedilol (Coreg) 25 Mg Tab, 1 TAB PO DAILY, #60 TAB 5 Refills 12/23/23 Lisinopril (Lisinopril) 5 Mg Tab, 5 MG PO DAILY for 30 Days, MG 12/23/23 Spironolactone (Spironolactone) 25 Mg Tab, 0.5 TAB PO DAILY, #90 TAB 1 Refill 12/23/23 Furosemide (Lasix) 20 Mg Tb, 1 TAB PO BID, #90 TAB 1 Refill 12/23/23 Information Source: Patient, Relative (GrandChild) Mode of Arrival: Wheelchair Severity: Moderate Timing: Weeks Duration: Since onset Past Medical History PAST MEDICAL HISTORY: CHF, [place] Past Medical History (Other): LYMPHOMA Surgical History: Unobtainable 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: Unobtainable Family History Family History: Unobtainable Social History Smoker: Unobtainable Alcohol: Heavy Drugs: Denies Drug Use Lives In: Home Constitutional: denies: chills, diaphoresis, fatigue, fever, malaise, sweats, weakness, others EENTM: denies: blurred vision, double vision, ear bleeding, ear discharge, ear drainage, ear pain, ear ringing, eye pain, eye redness, hearing loss, mouth pain, mouth swelling, nasal discharge, nose bleeding, nose congestion, nose pain, photophobia, tearing, throat pain, throat swelling, voice changes, others Respiratory: denies: cough, hemoptysis, orthopnea, SOB at rest, shortness of breath, SOB with excertion, stridor, wheezing, others Cardiovascular: denies: chest pain, dizzy spells, diaphoresis, Dyspnea on exertion, edema, irregular heart beat, left arm pain, lightheadedness, palpitations, PND, syncope, others Gastrointestinal: denies: abdomen distended, abdominal pain, blood streaked bowels, constipated, diarrhea, dysphagia, difficulty swallowing, hematemesis, melena, nausea, poor appetite, poor fluid intake, rectal bleeding, rectal pain, vomiting, others Genitourinary: denies: abnormal vagina bleeding, burning, dyspareunia, dysuria, flank pain, frequency, hematuria, incontinence, pain, , vagina discharge, urgency, others Neurological: reports: tremors; denies: dizziness, fainting, headache, left sided numbness, left sided weakness, numbness, paresthesia, pre-existing deficit, right sided numbness, right sided weakness, seizure, speech problems, tingling, weakness, others Musculoskeletal: denies: back pain, gout, joint pain, joint swelling, muscle pain, muscle stiffness, neck pain, others Integumetry: denies: bruises, change in color, change in hair/nails, dryness, laceration, lesions, lumps, rash, wounds, others Allergic/Immunocompromised: denies: Difficulty Healing, Frequent Infections, Hives, Itching, others Hematologic/Lymphatic: denies: anemia, blood clots, easy bleeding, easy bruising, swollen glands, others Endocrine: denies: excessive hunger, excessive sweating, excessive thirst, excessive urination, flushing, intolerance to cold, intolerance to heat, unexplained weight gain, unexplained weight loss, others Psychiatric: denies: anxiety, bipolar disorder, depression, hopeless, panic disorder, schizophrenia, sleepless, suicidal, others All Other Systems: Reviewed and Negative Physical Exam General Appearance: No Apparent Distress, Normal HEENT: Normal ENT Inspection, Pharynx Normal, TMs Normal Neck: Full Range of Motion, Non-Tender, Normal, Normal Inspection Respiratory: Chest Non-Tender, Lungs Clear, No Accessory Muscle Use, No Respiratory Distress, Normal Breath Sounds Cardiovascular: No Edema, No Murmur, No Gallop, Normal Peripheral Pulses, Tachycardia Breast Exam: Deferred Gastrointestinal: No Organomegaly, Non Tender, No Pulsatile Mass, Normal Bowel Sounds, Soft Genitalia: Deferred Pelvic: Deferred Rectal: Deferred Extremities: No calf tenderness, Normal capillary refill, Normal inspection, Normal range of motion, Non-tender, No pedal edema Musculoskeletal : Apperance: Normal Neurologic: Alert, change manager II-XII nml as Tested, No Motor Deficits, Normal Affect, Normal Mood, No Sensory Deficits Cerebellar Function: Normal Reflexes: Normal Skin: Dry, Normal Color, Warm Lymphatic: No Adenopathy Was a procedure done? Was a procedure done?: No Differential Dx Considerations may include: ETOH WITHDRAWAL, ALCOHOL ABUSE, ETOH INTOXICATION, DT, anxiety X-Ray, Labs, Meds, VS Vital Signs Date Time Temp Pulse Resp B/P (MAP) Pulse Ox O2 Delivery O2 Flow Rate FiO2 02/16/25 05:15 98.0 120 18 141/98 (112) 98 98.0 Lab Test 02/16/25 06:25 Range/Units White Blood Count 7.2 4.4-10.8 10^3/uL Red Blood Count 4.47 4.0-5.20 10^6/uL Hemoglobin 12.5 12.2-16.2 g/dL Hematocrit 37.8 36.0-46.0 % Mean Corpuscular Volume 84.6 80.0-100.0 fL Mean Corpuscular Hemoglobin 27.9 L 28.0-32.0 pg Mean Corpuscular Hemoglobin Concent 33.0 32.0-36.0 g/dL Red Cell Distribution Width 19.3 H 11.8-14.3 % Platelet Count 484 H 140-450 10^3/uL Mean Platelet Volume 7.3 6.9-10.8 fL Neutrophils (%) (Auto) 81.2 H 37.0-80.0 % Lymphocytes (%) (Auto) 10.7 10.0-50.0 % Monocytes (%) (Auto) 6.2 0.0-12.0 % Eosinophils (%) (Auto) 0.4 0.0-7.0 % Basophils (%) (Auto) 1.5 0.0-2.0 % Neutrophils # (Auto) 5.9 1.6-8.6 10 ^3/uL Lymphocytes # (Auto) 0.8 0.4-5.4 10 ^3/uL Monocytes # (Auto) 0.5 0-1.3 10 ^3/uL Eosinophils # (Auto) 0 0-0.8 10 ^3/uL Basophils # (Auto) 0.1 0-0.2 10 ^3/uL Nucleated Red Blood Cells 0.1 % Sodium Level 139 136-145 mmol/L Potassium Level 4.7 3.5-5.1 mmol/L Chloride Level 103 98-107 mmol/L Carbon Dioxide Level 26 20-31 mmol/L Anion Gap 10 5-15 Blood Urea Nitrogen 6 L 9-23 mg/dL Creatinine 0.78 0.550-1.02 mg/dL Glomerular Filtration Rate Calc 87 >90 mL/min BUN/Creatinine Ratio 7.7 L 10.0-20.0 Serum Glucose 117 H 74-106 mg/dL Calcium Level 10.0 8.7-10.4 mg/dL Total Bilirubin 0.8 0.2-1.0 mg/dL Aspartate Amino Transferase (AST) 26 <34 U/L Alanine Aminotransferase (ALT) 18 7-40 U/L Alkaline Phosphatase 79 46-116 U/L Total Protein 7.6 5.7-8.2 g/dL Albumin 4.7 3.2-4.8 g/dL Plasma/Serum Blood Alcohol < 3.0 <10 mg/dL Time of 1ST Reevaluation: 06:45 Reevaluation 1ST: Unchanged Time of 2ND Reevaluation: 07:53 Reevaluation 2ND: Unchanged Patient Education/Counseling: Diagnosis, Treatment, Prognosis, Need For Follow Up Family Education/Counseling: Diagnosis, Treatment, Prognosis, Need For Follow Up, No Family Present Comments pt expresses interest in quitting alcohol. her lat drink was about 10pm. pt fdeels oumar. although at this time, she appears anxious and is tachycardic, but without visible tremors. her etoh level is undetectable, and she may likely pr ogress to DT. pt lives alone and family cannot watch her. i will admit her for alcohol withdrawal Additional Information Previous visits reviewed: 01/26/24 [place] D/T METABOLIC ENCEPHALOPATHY The following tests were ordered, and results were reviewed by me: CBC, CMP, URINE ETHANOL, DRUG SCREEN Additional Information was gathered from interviewing the following independent historians: NIECE I discussed treatment and results with medical personnel and: patient Comprehensive systems review obtained and negative except for what is stated in the HPI. Departure 1 Departure Time of Disposition: 07:55 Impression: Primary Impression: Alcohol withdrawal Qualified Codes: F10.930 - Alcohol use, unspecified with withdrawal, uncomplicated Additional Impression: Tachycardia Disposition: ADMITTED INPATIENT Admit to: Tele Condition: Serious Discharged With: Self, Relative Critical Care Note Critical Care Time?: Yes (45 min-critical care time only) Critical care comment: Due to concerns for patients condition deteriorating, the care required my highest level of attention and readiness to intervene. I assessed the patient, reviewed the medical records, ordered the appropriate tests and treatments, then reassessed for results and responsiveness. I communicated with medical personnel and consultants and formulated a plan of care. Total critical care time excludes any procedures Stability Stability form required: No Heart Score Heart Score: Heart Score Response (Comments) Value History N/A 0 EKG N/A 0 Age N/A 0 Risk Factors N/A 0 Troponin N/A 0 Total 0 I personally scribed for STEW MARTE MD ([email or web address]) on 02/16/25 at 06:29. Electronically submitted by Ting Le ([email or web address]). I personally scribed for STEW MARTE MD ([email or web address]) on 02/16/25 at 07:03. Electronically submitted by Ting Le ([email or web address]). STEW MARTE MD Feb 16, 2025 06:29
[2025-02-16] MEDS: chlordiazePOXIDE HCL 25 MG CAP PO ONE (06:30)
[2025-02-16 06:33] LABS: Basophils # (auto) 0.1 10 ^3/uL (0-0.2); Eosinophils # (auto) 0 10 ^3/uL (0-0.8); Lymphocytes # (auto) 0.8 10 ^3/uL (0.4-5.4); Nucleated Red Blood Cells % 0.1 %; White Blood Cell 7.2 10^3/uL (4.4-10.8)
[2025-02-16 06:34] LABS: Basophils % (auto) 1.5 % (0.0-2.0); Eosinophils % (auto) 0.4 % (0.0-7.0); Hematocrit 37.8 % (36.0-46.0); Hemoglobin 12.5 g/dL (12.2-16.2); Lymphocytes % (auto) 10.7 % (10.0-50.0); Mean Corpuscular Hemoglobin 27.9 pg (28.0-32.0); Mean Corpuscular Volume 84.6 fL (80.0-100.0); Monocytes # (auto) 0.5 10 ^3/uL (0-1.3); Monocytes % (auto) 6.2 % (0.0-12.0); Neutrophils # (auto) 5.9 10 ^3/uL (1.6-8.6); Neutrophils % (auto) 81.2 % (37.0-80.0); Platelet Count (auto) 484 10^3/uL (140-450); Red Blood Cells 4.47 10^6/uL (4.0-5.20); Red Cell Distribution Width 19.3 % (11.8-14.3)
[2025-02-16 06:48] LABS: Anion Gap 10 (5-15)
[2025-02-16 06:49] LABS: BUN/Creatinine Ratio 7.7 (10.0-20.0); Carbon Dioxide 26 mmol/L (20-31); Chloride 103 mmol/L (98-107); Potassium 4.7 mmol/L (3.5-5.1); Sodium 139 mmol/L (136-145)
[2025-02-16 06:50] LABS: Alkaline Phosphatase 79 U/L (46-116); Blood Alcohol < 3.0 mg/dL (<10); Blood Urea Nitrogen 6 mg/dL (9-23); Glucose 117 mg/dL (74-106)
[2025-02-16 06:51] LABS: Alanine Aminotransferase 18 U/L (7-40); Albumin 4.7 g/dL (3.2-4.8); Aspartate Aminotransferase 26 U/L (<34); Bilirubin, Total 0.8 mg/dL (0.2-1.0); Total Protein 7.6 g/dL (5.7-8.2)
[2025-02-16] MEDS: ONDANSETRON HCL 4 MG/2 ML VIAL IV ONE (09:36)
[2025-02-16] MEDS: chlordiazePOXIDE HCL 25 MG CAP PO SCH (10:00)
[2025-02-16] MEDS ORDERED: DOCUSATE SOD 100 MG CAP PO PRN (10:00)
[2025-02-16] MEDS ORDERED: ONDANSETRON HCL 4 MG/2 ML VIAL IV PRN (10:00)
[2025-02-16] MEDS ORDERED: NITROGLYCERIN 0.4 MG SL TAB SL PRN (10:00)
--- NOTE | 2025-02-16 10:50 | DVHHP2 ---
History of Present Illness Reason for Visit: Alcohol withdrawal History of Present Illness 59-year-old female past medical history hypothyroidism V-tach GI bleed patient states received blood transfusion two years ago hypertension lymphoma in remission since 2013 AR causing cardiac arrest CHF dilated cardiomyopathy last echo with 2023 EF was 40% it appears patient had a right heart catheterization in February of 2024 there was no vessel occlusion noted chief complaint patient comes in with stating that she has been having symptoms of alcohol poisoning she states she has been sober for the last year and a half but she went binge drinking for the last five days she states she has been drinking 12 pack daily her last drink was yesterday morning at 11:00 a.m. since then she has not been feeling right she has been having some vomiting she did see blood in her vomit no clots and some dizziness she denies any black stools no abdominal pain no chest pain no shortness with the breath when speaking with the patient she denies any history seizure withdrawals when she stops drinking. This speak with the patient she has a history EGD no history colonoscopy when she states she does see Dr. Keller she is due to have a a colonoscopy in June of 2025 Crohn's he denies any smoker no drug use she lives with a daughter when evaluating patient's labs and imaging from ED folic acid was given Librium Zofran CBC was unremarkable CMP unremarkable alcohol level was negative with these findings we will admit for alcohol withdrawal we will also order echocardiogram check heart function provide banana bag and Ativan as needed for withdrawal symptoms. Also can consult geriatric social worker for management Past Medical History See HPI above Past Surgical History See HPI above Family History Reviewed, non-contributory to the management of this case. Past Social History The patient lives at home, denies smoking, alcohol or illicit drugs abuse. Review of Systems Constitutional: No: Fever, Chills, Sweats, Weakness, Malaise, Other Eyes: No: Pain, Vision change, Conjunctivae inflammation, Eyelid inflammation, Other, Redness ENT: No: Ear pain, Ear discharge, Nose pain, Nose discharge, Nose congestion, Mouth pain, Mouth swelling, Throat pain, Throat swelling, Other Respiratory: No: Cough, Dry, Shortness of breath, SOB with excertion, Wheezing, Hemoptysis, Pleuritic Pain, Sputum, Wheezing, Other Cardiovascular: No: Chest Pain, Palpitations, Orthopnea, Paroxysmal Noc. Dyspnea, Edema, Lt Headedness, Other Gastrointestinal: Nausea, Vomiting; No: Abdominal Pain, Diarrhea, Constipation, Melena, Hematochezia, Other Genitourinary: No Dysuria, No Frequency, No Incontinence, No Hematuria, No Retention, No Other Musculoskeletal: No: other, neck pain, shoulder pain, arm pain, back pain, hand pain, leg pain, foot pain Skin: No: Rash, Lesions, Jaundice, Bruising, Other Neurological: Weakness; No: Numbness, Incoordination, Change in speech, Con fusion, Seizures, Other Allergies: Coded Allergies: Sulfamethoxazole w/Trimethoprim (Verified Allergy, Unknown, DIZZY, 02/14/24) Medications Current Medications Medications Dose Ordered Sig/Issac Route Start Time Stop Time Status Last Admin Dose Admin Folic Acid 1 mg/ Multivitamins 10 ml/Magnesium Sulfate 8 meq/ Thiamine HCl 100 mg/Dextrose 1,013.2 ml @ 125.001 mls/hr DAILY@1800 INJ 02/16/25 18:00 Lorazepam 1 mg Q4H IV 02/16/25 10:00 Chlordiazepoxide HCl 50 mg Q8H PO 02/16/25 10:00 02/17/25 02:01 Chlordiazepoxide HCl 50 mg Q12HR PO 02/17/25 10:00 02/17/25 22:01 Chlordiazepoxide HCl 25 mg Q12HR PO 02/18/25 10:00 02/18/25 22:01 Chlordiazepoxide HCl 25 mg QAM PO 02/19/25 07:00 02/19/25 07:01 Ondansetron HCl 4 mg Q4HP PRN IV 02/16/25 10:00 Docusate Sodium 100 mg BIDPRN PRN PO 02/16/25 10:00 Morphine Sulfate 2 mg Q4HPRN PRN IV 02/16/25 10:00 Nitroglycerin 0.4 mg Q5MINP PRN SL 02/16/25 10:00 Exam Vital Signs Vital Signs Date Time Temp Pulse Resp B/P (MAP) Pulse Ox O2 Delivery O2 Flow Rate FiO2 02/16/25 08:29 111 16 98 Room Air 02/16/25 08:29 98.9 139/80 (99) 98.9 General Appearance: Alert, Oriented X3, Cooperative, No acute distress HEENT: Atraumatic, PERRLA, EOMI, Mucous membr. moist/pink Respiratory: Clear to auscultation, Normal air movement Cardiovascular: Regular rate, Normal S1, Normal S2, No murmurs Abdominal: Normal bowel sounds, Soft, No tenderness, No hepatospenomegaly, No masses Extremities: No clubbing, No cyanosis, No edema, Normal pulses, No tenderness/swelling Skin: No rashes, No breakdown, No significant lesion Neuro: Normal speech, Normal tone, Sensation intact, Cranial nerves 3-12 NL, Other (mild tremors ) Psych/Mental Status: Mental status NL, Mood NL Labs/Xrays I reviewed labs, imaging CT scan abdomen pelvis, EKG and all diagnostic studies on this patient from ED records and the medical chart Labs Test 02/16/25 06:25 Range/Units White Blood Count 7.2 4.4-10.8 10^3/uL Red Blood Count 4.47 4.0-5.20 10^6/uL Hemoglobin 12.5 12.2-16.2 g/dL Hematocrit 37.8 36.0-46.0 % Mean Corpuscular Volume 84.6 80.0-100.0 fL Mean Corpuscular Hemoglobin 27.9 L 28.0-32.0 pg Mean Corpuscular Hemoglobin Concent 33.0 32.0-36.0 g/dL Red Cell Distribution Width 19.3 H 11.8-14.3 % Platelet Count 484 H 140-450 10^3/uL Mean Platelet Volume 7.3 6.9-10.8 fL Neutrophils (%) (Auto) 81.2 H 37.0-80.0 % Lymphocytes (%) (Auto) 10.7 10.0-50.0 % Monocytes (%) (Auto) 6.2 0.0-12.0 % Eosinophils (%) (Auto) 0.4 0.0-7.0 % Basophils (%) (Auto) 1.5 0.0-2.0 % Neutrophils # (Auto) 5.9 1.6-8.6 10 ^3/uL Lymphocytes # (Auto) 0.8 0.4-5.4 10 ^3/uL Monocytes # (Auto) 0.5 0-1.3 10 ^3/uL Eosinophils # (Auto) 0 0-0.8 10 ^3/uL Basophils # (Auto) 0.1 0-0.2 10 ^3/uL Nucleated Red Blood Cells 0.1 % Sodium Level 139 136-145 mmol/L Potassium Level 4.7 3.5-5.1 mmol/L Chloride Level 103 98-107 mmol/L Carbon Dioxide Level 26 20-31 mmol/L Anion Gap 10 5-15 Blood Urea Nitrogen 6 L 9-23 mg/dL Creatinine 0.78 0.550-1.02 mg/dL Glomerular Filtration Rate Calc 87 >90 mL/min BUN/Creatinine Ratio 7.7 L 10.0-20.0 Serum Glucose 117 H 74-106 mg/dL Calcium Level 10.0 8.7-10.4 mg/dL Total Bilirubin 0.8 0.2-1.0 mg/dL Aspartate Amino Transferase (AST) 26 <34 U/L Alanine Aminotransferase (ALT) 18 7-40 U/L Alkaline Phosphatase 79 46-116 U/L Total Protein 7.6 5.7-8.2 g/dL Albumin 4.7 3.2-4.8 g/dL Plasma/Serum Blood Alcohol < 3.0 <10 mg/dL Assessment/Plan Assessment/Plan acute etoh withdrawal last drink yesterday at 11 ordered Librium taper ordered Ativan as needed ordered Seizure precautions monitor for etoh withdrawal etoh level normal vit b 12 level fu results ordered banana bag acute upper gi bleed with stable hemoglobin ordered Protonix morphine Zofran N.p.o. for now gentle hydration iwth hx of chf ordered gi consult fu results Patient is scheduled for colonoscopy in June of [address] Keller outpatient No history EGD or colonoscopy per patient acute EtOH abuse last use yesterday at 11 am can consult environmental services worker also consult for resources Encourage abstinence chronic problems vtach mi s/p cardiac arrest lymphoma 2013 chf without exacerbation gi bleed blood transfusion hypothyroidism dilated cardiomyopathy right heart cath no vessel occlusion fen/ppx npo Protonix IV fluids SCDs no dvt ppx since pt is ambulatory plan admit to medicine iV fluid hydration monitor for alcohol withdrawal and seizure precautions Plan discussed with: Patient My Orders Orders - OSIEL HATFIELD DNP Procedure Category Date Status Time Magnesium LAB 02/16/25 In Process 09:53 Lorazepam 2mg/Ml Inj PHA 02/16/25 In Process (Ativan Inj) 10:00 Chlordiazepoxide Hcl PHA 02/16/25 In Process Capsule (Librium Ca 10:00 Chlordiazepoxide Hcl PHA 02/17/25 In Process Capsule (Librium Ca 10:00 Chlordiazepoxide Hcl PHA 02/18/25 In Process Capsule (Librium Ca 10:00 Chlordiazepoxide Hcl PHA 02/19/25 In Process Capsule (Librium Ca 07:00 Admit ADMIT 02/16/25 Transmitted 09:53 Allergies DEANNA 02/16/25 In Process 09:53 Code Status CODE 02/16/25 Transmitted 09:53 Oxygen Per Hour RT 02/16/25 Transmitted 09:53 Ondansetron Hcl PHA 02/16/25 In Process (Zofran) 10:00 Docusate Sodium PHA 02/16/25 In Process Capsule (Colace 10:00 Fall Risk Precautions DEANNA 02/16/[address] 09:53 Complete Blood Count LAB 02/17/25 Verified 04:00 Comprehensive LAB 02/17/25 Verified Metabolic Panel 04:00 Cardiac DIET 02/16/25 Transmitted Diet-2gna,Lofat,Lochol Lunch Echo 2d Mode Cardiac US 02/16/25 Logged DOP 09:53 Condition: Stable DEANNA 02/16/25 In Process 09:53 Morphine Sulfate PHA 02/16/25 In Process Injection 10:00 Sequential DEANNA 02/16/25 In Process Compression Device Nitroglycerin PHA 02/16/25 In Process Sublingual (Ntrostat 10:00 Stat Ekg For Chest DEANNA 02/16/25 In Process Pain 09:53 Notify Of Changes DEANNA 02/16/25 In Process From Base 09:53 Chief Of Field Operations For DEANNA 02/16/25 In Process 24 Hours 09:53 Emergency Dysrhythmia DEANNA 02/16/25 In Process Protocol 09:53 Rhythm Strips Once DEANNA 02/16/25 In Process Every Shift 09:53 Oxygen By Nasal RT 02/16/25 Transmitted Cannula 09:53 Date of Service: Feb 16, 2025 Billing Provider: OSIEL HATFIELD DNP Common Visit Codes: [id number] INP/OBS CARE (HIGH) OSIEL HATFIELD DNP Feb 16, 2025 10:50
[2025-02-16] MEDS: LORazepam 2MG/ML-1ML VIAL IV SCH (11:03)
[2025-02-16] MEDS: PANTOPRAZOLE 40 MG/10 ML VIAL INJ IV ONE (11:03)
[2025-02-16 11:10] VITALS: PULSE 109; RESP 16; O2SAT 96
[2025-02-16] MEDS: MORPHINE SULFATE INJ 2 MG/ml SYRG IV PRN (13:40)
[2025-02-16 13:59] VITALS: BP 109/69; PULSE 107; RESP 16; RESP 17; TEMP 97.5; O2SAT 98
[2025-02-16 16:10] VITALS: BP 125/65; PULSE 95; RESP 17; TEMP 97.5; O2SAT 100
[2025-02-16 20:00] VITALS: PULSE 100
[2025-02-16 21:00] VITALS: BP 103/65; PULSE 103; RESP 17; TEMP 97.3; O2SAT 95
[2025-02-16] MEDS: FOLIC ACID 1 MG, MULTIPLE VITAMIN 10 ML, MAGNESIUM SULF SDV 50% 8 MEQ, THIAMINE INJ 100... INJ SCH (21:10)
[2025-02-16] MEDS: PANTOPRAZOLE 40 MG/10 ML VIAL INJ IV SCH (22:06)
--- NOTE | 2025-02-16 23:30 | DVHINCON2 ---
Date of service: Feb 16, 2025 History of Present Illness Per chart review - "59-year-old female past medical history hypothyroidism V- tach GI bleed patient states received blood transfusion two years ago hypertension lymphoma in remission since 2013 SC causing cardiac arrest CHF dilated cardiomyopathy last echo with 2023 EF was 40% it appears patient had a right heart catheterization in February of 2024 there was no vessel occlusion noted chief complaint patient comes in with stating that she has been having symptoms of alcohol poisoning she states she has been sober for the last year and a half but she went binge drinking for the last five days she states she has been drinking 12 pack daily her last drink was yesterday morning at 11:00 a.m. since then she has not been feeling right she has been having some vomiting she did see blood in her vomit no clots and some dizziness she denies any black stools no abdominal pain no chest pain no shortness with the breath when speaking with the patient she denies any history seizure withdrawals when she stops drinking. This speak with the patient she has a history EGD no history colonoscopy when she states she does see Dr. Keller she is due to have a a colonoscopy in June of 2025" She reports no N/V, no GIB since admission. Had EGD prior, could not recall her results Past Medical History As mentioned above Past Surgical History Reviewed Family History: Patient reports no known family medical history. Allergies: Coded Allergies: Sulfamethoxazole w/Trimethoprim (Verified Allergy, Unknown, DIZZY, 02/14/24) Home Meds Active Scripts Acetaminophen (Acetaminophen ER 8 Hour) 650 Mg Tab, 650 MG PO Q8HPRN PRN for 14 Days, #42 TAB Prov:VLADIMIR NG RESIDENT 01/04/24 Amiodarone Hcl (Amiodarone Hcl) 200 Mg Tab, 1 TAB PO DAILY, #30 TAB 5 Refills Prov:VLADIMIR NG RESIDENT 01/04/24 Reported Medications Famotidine (Famotidine) 20 Mg Tab, 20 MG PO BID, MG 12/23/23 Carvedilol (Coreg) 25 Mg Tab, 1 TAB PO DAILY, #60 TAB 5 Refills 12/23/23 Lisinopril (Lisinopril) 5 Mg Tab, 5 MG PO DAILY for 30 Days, MG 12/23/23 Spironolactone (Spironolactone) 25 Mg Tab, 0.5 TAB PO DAILY, #90 TAB 1 Refill 12/23/23 Furosemide (Lasix) 20 Mg Tb, 1 TAB PO BID, #90 TAB 1 Refill 12/23/23 Current Medications Current Medications Medications (Trade) Dose Ordered Sig/Issac Route PRN Reason Start Time Stop Time Status Last Admin Folic Acid 1 mg/ Multivitamins 10 ml/Magnesium Sulfate 8 meq/ Thiamine HCl 100 mg/Dextrose 1,013.2 ml @ 125.001 mls/hr DAILY@1800 INJ 02/16/25 18:00 02/16/25 21:10 Lorazepam (Ativan Inj) 1 mg Q4H IV 02/16/25 10:00 02/16/25 18:35 Chlordiazepoxide HCl (Librium Capsule) 50 mg Q8H PO 02/16/25 10:00 02/17/25 02:01 02/16/25 18:34 Chlordiazepoxide HCl (Librium Capsule) 50 mg Q12HR PO 02/17/25 10:00 02/17/25 22:01 Chlordiazepoxide HCl (Librium Capsule) 25 mg Q12HR PO 02/18/25 10:00 02/18/25 22:01 Chlordiazepoxide HCl (Librium Capsule) 25 mg QAM PO 02/19/25 07:00 02/19/25 07:01 Ondansetron HCl (Zofran) 4 mg Q4HP PRN IV NAUSEA / VOMITING 02/16/25 10:00 Docusate Sodium (Colace Capsule) 100 mg BIDPRN PRN PO FOR CONSTIPATION 02/16/25 10:00 Morphine Sulfate 2 mg Q4HPRN PRN IV SEVERE PAIN (7-10 PAIN SCALE) 02/16/25 10:00 02/16/25 13:40 Nitroglycerin (Ntrostat Sublingual) 0.4 mg Q5MINP PRN SL FOR CHEST PAIN 02/16/25 10:00 Pantoprazole Sodium (Protonix) 40 mg BID IV 02/16/25 22:00 02/16/25 22:06 Review of Systems 14 point ROS negative except mentioned above Vital Signs Vital Signs Date Time Temp Pulse Resp B/P (MAP) Pulse Ox O2 Delivery O2 Flow Rate FiO2 02/16/25 21:00 97.3 103 17 103/65 (78) 95 97.3 02/16/25 20:00 Room Air* 0 21 Physical Exam GE: in no acute distress CVS: S1S2+ Lungs: clear Abdomen: soft, non-distended, non-tender, BS+ Labs/Diagnostic Data Labs Test 02/16/25 06:25 Range/Units White Blood Count 7.2 4.4-10.8 10^3/uL Red Blood Count 4.47 4.0-5.20 10^6/uL Hemoglobin 12.5 12.2-16.2 g/dL Hematocrit 37.8 36.0-46.0 % Mean Corpuscular Volume 84.6 80.0-100.0 fL Mean Corpuscular Hemoglobin 27.9 L 28.0-32.0 pg Mean Corpuscular Hemoglobin Concent 33.0 32.0-36.0 g/dL Red Cell Distribution Width 19.3 H 11.8-14.3 % Platelet Count 484 H 140-450 10^3/uL Mean Platelet Volume 7.3 6.9-10.8 fL Neutrophils (%) (Auto) 81.2 H 37.0-80.0 % Lymphocytes (%) (Auto) 10.7 10.0-50.0 % Monocytes (%) (Auto) 6.2 0.0-12.0 % Eosinophils (%) (Auto) 0.4 0.0-7.0 % Basophils (%) (Auto) 1.5 0.0-2.0 % Neutrophils # (Auto) 5.9 1.6-8.6 10 ^3/uL Lymphocytes # (Auto) 0.8 0.4-5.4 10 ^3/uL Monocytes # (Auto) 0.5 0-1.3 10 ^3/uL Eosinophils # (Auto) 0 0-0.8 10 ^3/uL Basophils # (Auto) 0.1 0-0.2 10 ^3/uL Nucleated Red Blood Cells 0.1 % Sodium Level 139 136-145 mmol/L Potassium Level 4.7 3.5-5.1 mmol/L Chloride Level 103 98-107 mmol/L Carbon Dioxide Level 26 20-31 mmol/L Anion Gap 10 5-15 Blood Urea Nitrogen 6 L 9-23 mg/dL Creatinine 0.78 0.550-1.02 mg/dL Glomerular Filtration Rate Calc 87 >90 mL/min BUN/Creatinine Ratio 7.7 L 10.0-20.0 Serum Glucose 117 H 74-106 mg/dL Calcium Level 10.0 8.7-10.4 mg/dL Magnesium Level 2.0 1.6-2.6 mg/dL Total Bilirubin 0.8 0.2-1.0 mg/dL Aspartate Amino Transferase (AST) 26 <34 U/L Alanine Aminotransferase (ALT) 18 7-40 U/L Alkaline Phosphatase 79 46-116 U/L Total Protein 7.6 5.7-8.2 g/dL Albumin 4.7 3.2-4.8 g/dL Thyroid Stimulating Hormone (TSH) 1.64 0.55-4.78 uIU/mL Plasma/Serum Blood Alcohol < 3.0 <10 mg/dL Assessment #Hematemesis, likely 2/2 esophagitis #N/V #Alcohol binge, causing the above #Low ferritin/iron sats -Monitor Hb. stable for now and no GIB since admission. resume diet and monitor -PPI IV BID -Alcohol abstinence rec strictly -No GI intervention rec, if Hb remains stable. Consider EGD, only if significant Hb drop (not from hemodilution) or active GIB noted. Will discuss with Dr Keller. -Care plan discussed with pt and RN. Thank you for the consult Plan discussed with: Patient, Other EDUARDO KIM MD Feb 16, 2025 23:30
[2025-02-17] VITALS (7 sets, daily range): BP systolic 111–132; BP diastolic 55–81; PULSE 80–101; RESP 16–18; TEMP 97–98; O2SAT 94–99
[2025-02-17 06:58] LABS: Basophils # (auto) 0 10 ^3/uL (0-0.2); Basophils % (auto) 1.1 % (0.0-2.0); Eosinophils # (auto) 0.1 10 ^3/uL (0-0.8); Eosinophils % (auto) 1.8 % (0.0-7.0); Hematocrit 34.4 % (36.0-46.0); Hemoglobin 11.2 g/dL (12.2-16.2); Lymphocytes # (auto) 0.8 10 ^3/uL (0.4-5.4); Lymphocytes % (auto) 17.7 % (10.0-50.0); Mean Corpuscular Hemoglobin 27.9 pg (28.0-32.0); Mean Corpuscular Hgb Conc. 32.6 g/dL (32.0-36.0); Mean Corpuscular Volume 85.6 fL (80.0-100.0); Monocytes # (auto) 0.5 10 ^3/uL (0-1.3); Monocytes % (auto) 9.9 % (0.0-12.0); Neutrophils # (auto) 3.3 10 ^3/uL (1.6-8.6); Neutrophils % (auto) 69.5 % (37.0-80.0); Platelet Count (auto) 389 10^3/uL (140-450); Red Blood Cells 4.02 10^6/uL (4.0-5.20); White Blood Cell 4.7 10^3/uL (4.4-10.8)
[2025-02-17 07:20] LABS: Alanine Aminotransferase 12 U/L (7-40); Albumin 4.3 g/dL (3.2-4.8); Alkaline Phosphatase 70 U/L (46-116); Anion Gap 10 (5-15); Aspartate Aminotransferase 22 U/L (<34); BUN/Creatinine Ratio 6.3 (10.0-20.0); Bilirubin, Total 1.1 mg/dL (0.2-1.0); Calcium 9.1 mg/dL (8.7-10.4); Carbon Dioxide 28 mmol/L (20-31); Chloride 101 mmol/L (98-107); Glucose 89 mg/dL (74-106); Potassium 4.1 mmol/L (3.5-5.1); Sodium 139 mmol/L (136-145); Total Protein 6.7 g/dL (5.7-8.2)
[2025-02-17 07:21] LABS: Blood Urea Nitrogen 5 mg/dL (9-23)
[2025-02-17] MEDS: chlordiazePOXIDE HCL 25 MG CAP PO SCH (09:41)
--- NOTE | 2025-02-17 15:04 | DVHPN2 ---
Progress Note Date Seen: Feb 17, 2025 Medical Necessity Reason Pt with a Central, PICC or Fol: No Subjective Patient reports: No new complaints Review of Systems: HEENT:Normal, CVS:Normal, RESPIRATORY:Normal, GI:Normal, :Normal, MSK:Normal, NEURO:Normal Objective vital signs Vital Sign Date Time Temp Pulse Resp B/P (MAP) Pulse Ox O2 Delivery O2 Flow Rate FiO2 02/17/25 13:00 98.0 94 16 132/71 (91) 95 98.0 02/17/25 07:30 Room Air* 0 21 Total Intake and Output 02/16/25 02/16/25 02/17/25 15:00 23:00 07:00 Intake Total 1263.2 ml Balance 1263.2 ml medications Current Medications Medications Dose Ordered Sig/Issac Route Start Time Stop Time Status Last Admin Dose Admin Lorazepam 1 mg Q4H IV 02/16/25 10:00 02/17/25 14:30 1 MG Chlordiazepoxide HCl 50 mg Q12HR PO 02/17/25 10:00 02/17/25 22:01 02/17/25 09:41 50 MG Chlordiazepoxide HCl 25 mg Q12HR PO 02/18/25 10:00 02/18/25 22:01 Chlordiazepoxide HCl 25 mg QAM PO 02/19/25 07:00 02/19/25 07:01 Ondansetron HCl 4 mg Q4HP PRN IV 02/16/25 10:00 Docusate Sodium 100 mg BIDPRN PRN PO 02/16/25 10:00 Morphine Sulfate 2 mg Q4HPRN PRN IV 02/16/25 10:00 02/16/25 13:40 2 MG Nitroglycerin 0.4 mg Q5MINP PRN SL 02/16/25 10:00 Pantoprazole Sodium 40 mg BID IV 02/16/25 22:00 02/17/25 09:41 40 MG Folic Acid 1 mg DAILY PO 02/18/25 10:00 Multivitamins 1 tab DAILY PO 02/18/25 10:00 Magnesium Oxide 400 mg DAILY PO 02/18/25 10:00 Thiamine HCl 100 mg DAILY PO 02/18/25 10:00 Examination: GENERAL:Normal, HEENT:Normal, NECK:Normal, LUNGS:Normal, CVS:Normal, ABDOMEN:Normal, MSK:Normal, SKIN:Normal, NEURO:Normal, :Normal laboratory and microbiology Laboratory Tests 02/17/25 05:49 Test 02/17/25 05:49 Range/Units Serum Glucose 89 74-106 mg/dL Problem List/Assessment/Plan Problem List/Assessment/Plan #1 abd pain/vomiting likely gastritis: iv ppi #2 alcohol abuse: cont meds #3 h/o lymphoma #4 chronic systolic /diastolic heart failure- due to chemo/radiation #5 s/p vtach/arrest #6 anxiety advance care planning- full code- time spent 19 mins Plan discussed with: Patient My Orders My Orders Orders - PAVAN CHONG MD Procedure Category Date Status Time Amiodarone Tablet PHA 02/18/25 Verified (Cordarone Tablet) 10:00 Amiodarone Tablet PHA 02/17/25 Verified (Cordarone Tablet) 15:00 Lisinopril Tablet PHA 02/18/25 Verified (Zestril Tablet) 10:00 Carvedilol Tablet PHA 02/17/25 Verified (Coreg Tablet) 22:00 Spironolactone PHA 02/18/25 Verified (Aldactone) 10:00 Basic Metabolic Panel LAB 02/18/25 Verified 06:00 Complete Blood Count LAB 02/18/25 Verified 06:00 Urinalysis LAB 02/17/25 Uncollected 14:59 Date of Service: Feb 17, 2025 Billing Provider: PAVAN CHONG MD Common Visit Codes: 70433-[id number] INP/OBS CARE(HIGH) Secondary Visit Codes: [id number] CARE PLAN 30 MINUTES PAVAN CHONG MD Feb 17, 2025 15:04
[2025-02-17] MEDS ORDERED: LORazepam 2MG/ML-1ML VIAL IV PRN (15:45)
[2025-02-17] MEDS: MULTIPLE VITAMIN TAB PO ONE (17:26)
[2025-02-17] MEDS: AMIODARONE HCL 200 MG TAB PO ONE (17:27)
[2025-02-17] MEDS: MAGNESIUM OXIDE 400 MG TAB PO ONE (17:27)
[2025-02-17] MEDS: FOLIC ACID 1 MG TAB PO ONE (17:27)
[2025-02-17] MEDS: THIAMINE HCL 100 MG TAB PO ONE (17:27)
[2025-02-17] MEDS: CARVEDILOL 3.125 MG TAB PO SCH (21:53)
[2025-02-18 01:03] VITALS: BP 118/73; PULSE 86; RESP 18; TEMP 97.9; O2SAT 93
[2025-02-18 05:11] VITALS: BP 117/82; PULSE 89; RESP 18; TEMP 97.8; O2SAT 94
[2025-02-18 06:16] LABS: Chloride 105 mmol/L (98-107); Potassium 4.1 mmol/L (3.5-5.1); Sodium 143 mmol/L (136-145)
[2025-02-18 06:17] LABS: Anion Gap 10 (5-15); Calcium 9.7 mg/dL (8.7-10.4); Carbon Dioxide 28 mmol/L (20-31)
[2025-02-18 06:22] LABS: Glucose 90 mg/dL (74-106)
[2025-02-18 06:23] LABS: Blood Urea Nitrogen 8 mg/dL (9-23)
[2025-02-18 06:25] LABS: Basophils # (auto) 0 10 ^3/uL (0-0.2); Basophils % (auto) 0.7 % (0.0-2.0); Eosinophils # (auto) 0.1 10 ^3/uL (0-0.8); Hematocrit 33.6 % (36.0-46.0); Hemoglobin 11.1 g/dL (12.2-16.2); Lymphocytes # (auto) 0.9 10 ^3/uL (0.4-5.4); Lymphocytes % (auto) 13.4 % (10.0-50.0); Mean Corpuscular Hemoglobin 28.2 pg (28.0-32.0); Mean Corpuscular Hgb Conc. 33.1 g/dL (32.0-36.0); Mean Corpuscular Volume 85.3 fL (80.0-100.0); Monocytes # (auto) 0.8 10 ^3/uL (0-1.3); Monocytes % (auto) 12.3 % (0.0-12.0); Neutrophils # (auto) 4.9 10 ^3/uL (1.6-8.6); Neutrophils % (auto) 71.6 % (37.0-80.0); Nucleated Red Blood Cells % 0.1 %; Platelet Count (auto) 362 10^3/uL (140-450); Red Blood Cells 3.94 10^6/uL (4.0-5.20); Red Cell Distribution Width 18.7 % (11.8-14.3); White Blood Cell 6.9 10^3/uL (4.4-10.8)
[2025-02-18 07:50] VITALS: RESP 18
[2025-02-18] MEDS: AMIODARONE HCL 200 MG TAB PO SCH (08:33)
[2025-02-18] MEDS: LISINOPRIL 5 MG TAB PO SCH (08:33)
[2025-02-18] MEDS: MAGNESIUM OXIDE 400 MG TAB PO SCH (08:34)
[2025-02-18] MEDS: FOLIC ACID 1 MG TAB PO SCH (08:34)
[2025-02-18] MEDS: SPIRONOLACTONE 25 MG TAB PO SCH (08:34)
[2025-02-18] MEDS: MULTIPLE VITAMIN TAB PO SCH (08:34)
[2025-02-18] MEDS: THIAMINE HCL 100 MG TAB PO SCH (08:34)
[2025-02-18] MEDS: chlordiazePOXIDE HCL 25 MG CAP PO SCH (08:34)
[2025-02-18 10:00] VITALS: BP 125/72; PULSE 88; RESP 18; TEMP 98.1; O2SAT 96
--- NOTE | 2025-02-18 10:49 | DVHDS2 ---
Discharge Summary Date of Admission Feb 16, 2025 at 09:53 Date of Discharge: Feb 18, 2025 Labs/Diagnostic Data: Laboratory Results Test 02/18/25 05:30 02/17/25 05:49 02/16/25 06:25 White Blood Count 6.9 10^3/uL (4.4-10.8) Red Blood Count 3.94 10^6/uL (4.0-5.20) Hemoglobin 11.1 g/dL (12.2-16.2) Hematocrit 33.6 % (36.0-46.0) Mean Corpuscular Volume 85.3 fL (80.0-100.0) Mean Corpuscular Hemoglobin 28.2 pg (28.0-32.0) Mean Corpuscular Hemoglobin Concent 33.1 g/dL (32.0-36.0) Red Cell Distribution Width 18.7 % (11.8-14.3) Platelet Count 362 10^3/uL (140-450) Mean Platelet Volume 7.9 fL (6.9-10.8) Neutrophils (%) (Auto) 71.6 % (37.0-80.0) Lymphocytes (%) (Auto) 13.4 % (10.0-50.0) Monocytes (%) (Auto) 12.3 % (0.0-12.0) Eosinophils (%) (Auto) 2.0 % (0.0-7.0) Basophils (%) (Auto) 0.7 % (0.0-2.0) Neutrophils # (Auto) 4.9 10 ^3/uL (1.6-8.6) Lymphocytes # (Auto) 0.9 10 ^3/uL (0.4-5.4) Monocytes # (Auto) 0.8 10 ^3/uL (0-1.3) Eosinophils # (Auto) 0.1 10 ^3/uL (0-0.8) Basophils # (Auto) 0 10 ^3/uL (0-0.2) Nucleated Red Blood Cells 0.1 % Sodium Level 143 mmol/L (136-145) Potassium Level 4.1 mmol/L (3.5-5.1) Chloride Level 105 mmol/L (98-107) Carbon Dioxide Level 28 mmol/L (20-31) Anion Gap 10 (5-15) Blood Urea Nitrogen 8 mg/dL (9-23) Creatinine 0.89 mg/dL (0.550-1.02) Glomerular Filtration Rate Calc 74 mL/min (>90) BUN/Creatinine Ratio 9.0 (10.0-20.0) Serum Glucose 90 mg/dL (74-106) Calcium Level 9.7 mg/dL (8.7-10.4) Total Bilirubin 1.1 mg/dL (0.2-1.0) Aspartate Amino Transferase (AST) 22 U/L (<34) Alanine Aminotransferase (ALT) 12 U/L (7-40) Alkaline Phosphatase 70 U/L (46-116) Total Protein 6.7 g/dL (5.7-8.2) Albumin 4.3 g/dL (3.2-4.8) Magnesium Level 2.0 mg/dL (1.6-2.6) Thyroid Stimulating Hormone (TSH) 1.64 uIU/mL (0.55-4.78) Plasma/Serum Blood Alcohol < 3.0 mg/dL (<10) Other Laboratory Tests 02/18/25 05:30 Brief Hx & Hospital Course: see dictated note Condition at Discharge: Fair Final Diagnosis/Problems List abd pain Discharge Disposition: Home Discharge Instruct/Medications Diet: Cardiac 2g Na,low cholest Activity: No Restrictions, As Tolerated Follow Up/Referral: fu with pcp in 1 wk Medications: resume home meds script to pharmacy Discharge Statement: "Patient was advised to return to the ER or call 911 if any headaches, dizziness, shortness of breath, chest pain, abdominal pain, bleeding, fevers, or worsening of medical condition. Patient was counseled about treatment plan, medications, possible side effects, patientverbalized understanding. All questions were answered to the best of my ability. This discharge took greater then 30 minutes in planning, reviewing documentation, counseling the patient, and discussing with other team members." ASSESSMENT ASSESSMENT Assessment abd pain Date of Service: Feb 18, 2025 Billing Provider: PAVAN CHONG MD Common Visit Codes: 01781-YBS/OBS DISCH DAY >30min PAVAN CHONG MD Feb 18, 2025 10:49
[2025-02-18] MEDS ORDERED: PANT40TA2 PO (10:51)
--- NOTE | 2025-02-18 10:58 | DVHDS ---
DATE OF DISCHARGE: 02/18/2025 HISTORY OF PRESENT ILLNESS: The patient is a 59-year-old lady who is admitted with history of persistent nausea and vomiting after an alcohol drinking binge. The patient has a history of dilated cardiomyopathy with V-tach in the past. HOSPITAL COURSE: The patient's tox screen was negative for alcohol. The patient had no drop in hemoglobin. The patient was seen in GI consult by Dr. Son. Echocardiogram is currently pending. The patient is now doing well and is tolerating her oral diet. She will be discharged home to resume her home medications as well as to be on Protonix 40 mg daily for 2 weeks. She has been strongly advised to quit alcohol abuse. FINAL DIAGNOSES: * Abdominal pain with vomiting, likely secondary to alcoholic gastritis. * Alcohol abuse. * History of lymphoma. * Chronic systolic/diastolic heart failure. * History of ventricular tachycardia with arrest. * Anxiety. Time spent in discharge planning and review of plan with the patient and nursing was 37 minutes. MD ESPINOZA Cuello/ALIX TID: [id number] RECEIPT: [id number]
[2025-02-18 11:21] VITALS: BP 123/87; PULSE 85; TEMP 36.7
[2025-02-19] MEDS ORDERED: chlordiazePOXIDE HCL 25 MG CAP PO SCH (07:00)
== END 2025-02-18 12:50 | disposition home or self-care (01) | DRG 378 ==
LOC: ER 05:13 → OVERFLOW 09:53 → EAST 18:57
PROVIDERS: ADMIT Internal Medicine; ATTEND Internal Medicine
DX: K29.21 Alcoholic gastritis with bleeding (principal); F10.130 Alcohol abuse with withdrawal, uncomplicated; I50.42 Chronic combined systolic (congestive) and diastolic (congestive) heart failure; I42.0 Dilated cardiomyopathy; F41.9 Anxiety disorder, unspecified; F17.200 Nicotine dependence, unspecified, uncomplicated; I11.0 Hypertensive heart disease with heart failure; E03.9 Hypothyroidism, unspecified; Z88.3 Allergy status to other anti-infective agents; Z86.79 Personal history of other diseases of the circulatory system; Z86.74 Personal history of sudden cardiac arrest; I25.2 Old myocardial infarction; Z79.899 Other long term (current) drug therapy; Y90.0 Blood alcohol level of less than 20 mg/100 ml
CPT/HCPCS: 36415; 80048; 80053; 80320; 83735; 84443; 85025; 93306; 96374; 96375; 99291; G0378; J2405; J2470

== ENCOUNTER 2025-07-11 08:14 | Day surgery (SDC) | payer MEDICARE, MEDICAID ==
[2025-07-10 07:42] LABS: Hemoglobin 10.0 g/dL (12.2-16.2); Nucleated Red Blood Cells % 0.0 %
[2025-07-10 07:43] LABS: Hematocrit 32.0 % (36.0-46.0); Mean Corpuscular Hemoglobin 23.3 pg (28.0-32.0); Mean Corpuscular Volume 74.7 fL (80.0-100.0)
[2025-07-10 07:56] LABS: INR 1.02 (0.9-1.15); Partial Thromboplastin Time 24.2 SEC (24.5-34.5); Prothrombin Time 10.8 sec (9.3-11.8)
[2025-07-10 08:16] LABS: Urine Protein, UAD Negative (Negative)
[2025-07-10 09:38] LABS: Alanine Aminotransferase 12 U/L (7-40); Alkaline Phosphatase 70 U/L (46-116); Anion Gap 11 (5-15); BUN/Creatinine Ratio 13.0 (10.0-20.0); Blood Urea Nitrogen 12 mg/dL (9-23); Calcium 9.5 mg/dL (8.7-10.4); Carbon Dioxide 27 mmol/L (20-31); Chloride 106 mmol/L (98-107); Glucose 86 mg/dL (74-106); Potassium 4.4 mmol/L (3.5-5.1); Sodium 144 mmol/L (136-145); Total Protein 7.2 g/dL (5.7-8.2)
[2025-07-10 09:39] LABS: Albumin 4.5 g/dL (3.2-4.8); Bilirubin, Total 0.4 mg/dL (0.2-1.0)
[~2025-07-11] VITALS: Ht 167.6 cm; Wt 87.1 kg
[~2025-07-11 08:14] MED LIST changes: +LEVO-848 GT; +PANT40TA2 PO; +SEMA2INJ3 SC
[2025-07-11] MEDS ORDERED: LIDOCAINE 1% INJ PF 5ML AMP ONE (09:09)
[2025-07-11] MEDS ORDERED: ONDANSETRON HCL 4 MG/2 ML VIAL ONE (09:09)
[2025-07-11] MEDS ORDERED: SODIUM CHLORIDE LOCK 10 ML ONE (09:09)
[2025-07-11] MEDS ORDERED: fentaNYL CITRATE 100 MCG/2 ML VL ONE (09:09)
[2025-07-11] MEDS ORDERED: PROPOFOL 10 MG/ML 20 ML IV ONE (09:09)
[2025-07-11] MEDS ORDERED: MIDAZOLAM HCL 2MG/2ML 2ml VIAL (1mg/ml) ONE (09:09)
[2025-07-11] MEDS ORDERED: KETAMINE 50mg/ML 1ml syringe ONE (09:09)
[2025-07-11] MEDS ORDERED: METOCLOPRAMIDE HCL 5MG/ml INJ 2ml VIAL IV PRN (09:15)
[2025-07-11] MEDS ORDERED: MORPHINE SULFATE 4 MG/ML SYR/VIAL IV PRN (09:15)
[2025-07-11] MEDS ORDERED: HYDROmorphone HCL 2 MG/ML VL/or syr IV PRN ×2 (09:15)
[2025-07-11] MEDS ORDERED: MORPHINE SULFATE INJ 2 MG/ml SYRG IV PRN (09:15)
[2025-07-11] MEDS ORDERED: KETOROLAC TROMETH 30 MG/ML 1ML VIAL IV ONE (09:15)
[2025-07-11] MEDS ORDERED: LIDOCAINE VISCOUS 2% 15ML UD ONE (09:49)
[2025-07-11 10:26] VITALS: PULSE 66; RESP 13; TEMP 96.9
--- NOTE | 2025-07-11 10:37 | DVHOP2 ---
Operative Report DATE OF OPERATION: 07/11/25 PROCEDURE: Colonoscopy with hot snare polypectomy. PREOPERATIVE INDICATION: The patient is a 59 -year-old female undergoing colonoscopy for colon cancer screening POSTOPERATIVE DIAGNOSES: 1. 1-1.5 cm benign-appearing descending colon polyp was seen and removed by hot snare polypectomy 2. An adjacent 2-3 mm polyp was seen and removed by cold biopsy forceps in the descending colon 3. There were three diminutive benign-appearing rectosigmoid tiny polyps that were seen and removed by cold biopsy forceps 4. Moderate scattered diverticulosis most prominent in the sigmoid with sigmoid muscular hypertrophy 5. Trace internal hemorrhoids otherwise normal examination up to the cecum and terminal ileum PROCEDURE PERFORMED BY: Bg Keller M.D. SCOPE: Olympus videocolonoscope. ASA CLASS: 2 PREOPERATIVE MEDICATIONS: Dr. Rachid Stein PROCEDURE IN DETAIL: After obtaining an informed consent, the patient was placed on left lateral decubitus position. She was then sedated with the above medications. A rectal examination was performed that was normal. The colonoscope was then passed through the anus into the rectosigmoid and through the descending, transverse, and ascending colon up to the cecum with visualization of the appendiceal orifice, base of the cecum and the ileocecal valve. The colonoscope was then withdrawn. The distal 3-5 cm of the terminal ileum were normal No masses or colitis were seen. Patient had moderate scattered diverticular disease most prominent in the left colon and sigmoid colon There was sigmoid muscular hypertrophy. In the descending colon there was a 1- 1.5 cm polyp that was seen and removed by hot snare polypectomy Adjacent 2-3 mm polyp was seen and removed by cold biopsy forceps. In the rectosigmoid there were three diminutive polyps removed by cold biopsy forceps On retroflexion she had trace internal hemorrhoids. The patient tolerated the procedure well without difficulty. WITHDRAWAL TIME: 12 minutes QUALITY OF THE PREP: Lowden Bowel Prep score: 9. COMPLICATIONS : None SPECIMENS: Descending colon polyps x2 Rectosigmoid polyps x3 DISPOSITION: Status D/C to home PLAN: 1. Repeat colonoscopy based on biopsy result likely in 3-5 years 2. Resume GI soft diet advance as tolerated 3. Increase fluid and fiber intake 4. Outpatient follow up with me in 2-4 weeks to review results and discuss further management BG KELLER MD Jul 11, 2025 10:37
--- NOTE | 2025-07-11 10:44 | DVHOP2 ---
Operative Report DATE OF OPERATION: 07/11/25 PROCEDURE: Upper Endoscopy with biopsy. PREOPERATIVE INDICATION: The patient is a 59 -year-old female undergoing endoscopy for chronic GERD POSTOPERATIVE DIAGNOSES: 1. 5 cm sliding-type hiatal hernia with no significant erosive esophagitis and normal squamocolumnar junction 2. Minimal gastritis otherwise normal examination up to the 2nd and 3rd part of the duodenum PROCEDURE PERFORMED BY: Bg Keller GI NURSE: John SCOPE: Olympus videoendoscope. ASA CLASS: 3 PREOPERATIVE MEDICATIONS: Mac karen, Dr. Rod PROCEDURE IN DETAIL: After obtaining an informed consent, the patient was placed on left lateral decubitus position. The patient was then sedated with the above medications. A bite block was placed between her teeth. The endoscope was then passed through the oropharynx, into the esophagus, and through the stomach and pylorus up to the second and third part of the duodenum. The endoscope was then withdrawn. The 2nd and 3rd part of the duodenum and the duodenal bulb were normal. Duodenal biopsies were obtained The pre-pyloric area antrum and body showed minimal gastritis. Gastric biopsies were obtained. On retroflexion the fundus cardia and angularis were normal. The endoscope was then withdrawn into the distal esophagus Patient had a 5 cm sliding-type hiatal hernia with no significant erosive esophagitis and normal squamocolumnar junction neck The remaining distal and proximal esophagus and oropharynx were unremarkable The patient tolerated the procedure well without difficulty. COMPLICATIONS : None SPECIMENS: Duodenal biopsies Gastric biopsies DISPOSITION: Stable D/C to home PLAN: 1. Await for biopsy result 2. Will place pt on Protonix 40 mg p.o. daily or continue current PPI 3. Resume GI soft diet advance as tolerated 4. Outpatient follow up with me in 4-6 weeks to review results and discuss further management 5. Lifestyle and dietary modifications for GERD BG KELLER MD Jul 11, 2025 10:44
[2025-07-11 10:56] VITALS: BP 126/80; PULSE 55; RESP 15; O2SAT 98
== END 2025-07-11 11:06 | disposition home or self-care (01) ==
LOC: GI 08:14
PROVIDERS: ATTEND Internal Medicine Gastroenterology
DX: K59.09 Other constipation (principal); K57.30 Diverticulosis of large intestine without perforation or abscess without bleeding; D12.4 Benign neoplasm of descending colon; K62.1 Rectal polyp; K21.9 Gastro-esophageal reflux disease without esophagitis; K29.50 Unspecified chronic gastritis without bleeding; I11.0 Hypertensive heart disease with heart failure; I50.9 Heart failure, unspecified; Z90.49 Acquired absence of other specified parts of digestive tract; Z98.890 Other specified postprocedural states; E66.9 Obesity, unspecified; Z68.31 Body mass index [BMI] 31.0-31.9, adult; I25.10 Atherosclerotic heart disease of native coronary artery without angina pectoris; I42.9 Cardiomyopathy, unspecified
CPT/HCPCS: 36415; 43239; 45380; 45385; 80053; 81001; 85025; 85610; 85730; 88305; 88313; 88342; J2250; J2405; J2704; J3010; J7030